=== PATIENT | male | born 1985 | race Two or more races ===

== ENCOUNTER 2019-04-05 03:19 | Emergency (ER) | payer OTHER ==
[~2019-04-05] VITALS: Ht 180.3 cm; Wt 104.3 kg
[2019-04-05 04:16] VITALS: BP 120/83
== END 2019-04-05 04:46 | disposition home or self-care (01) ==
LOC: ER 03:24
DX: H66.001 Acute suppurative otitis media without spontaneous rupture of ear drum, right ear (principal)

== ENCOUNTER 2024-10-04 18:47 | Inpatient (IN) | payer MEDICAID, OTHER ==
[~2024-10-04] VITALS: Ht 170.2 cm; Wt 97.4 kg
--- NOTE | 2024-10-04 19:16 | ED.PDOC ---
GI ASSESSMENT HPI Comments 39y M who presents to the ED for chief complaint of abdominal pain. Pt states he has been having epigastric abdominal pain for the past 1 week. Pt states the pain is constant, with no associated exacerbating or relieving factors. Pt has associated vomiting but otherwise denies any other symptoms. Pt states he has history of colon cancer with prior colon resection. Pt states cancer had come back but pt states he did not want chemo. Pt otherwise denies any other symptoms at this time. Chief Complaint: Abdominal Pain Time Seen by MD: 19:12 Reviewed Notes: Medications, Allergies Allergies: Coded Allergies: NO KNOWN ALLERGIES (Unverified , 04/05/19) Information Source: Patient, Spouse Mode of Arrival: Ambulatory Brought in by: spouse Past Medical History PAST MEDICAL HISTORY: Denies Past Medical History (Other): colon cancer Surgical History: Denies all surgeries Family History Family History: Reviewed,noncontributory to illness Social History Smoker: Non-Smoker Alcohol: Denies ETOH Use Drugs: Denies Drug Use Lives In: Home Constitutional: denies: chills, diaphoresis, fatigue, fever, malaise, sweats, weakness, others EENTM: denies: blurred vision, double vision, ear bleeding, ear discharge, ear drainage, ear pain, ear ringing, eye pain, eye redness, hearing loss, mouth pain, mouth swelling, nasal discharge, nose bleeding, nose congestion, nose pain, photophobia, tearing, throat pain, throat swelling, voice changes, others Respiratory: denies: cough, hemoptysis, orthopnea, SOB at rest, shortness of breath, SOB with excertion, stridor, wheezing, others Cardiovascular: denies: chest pain, dizzy spells, diaphoresis, Dyspnea on exer tion, edema, irregular heart beat, left arm pain, lightheadedness, palpitations, PND, syncope, others Gastrointestinal: reports: abdominal pain, vomiting; denies: abdomen distended, blood streaked bowels, constipated, diarrhea, dysphagia, difficulty swallowing, hematemesis, melena, nausea, poor appetite, poor fluid intake, rectal bleeding, rectal pain, others Genitourinary: denies: burning, dysuria, flank pain, frequency, hematuria, incontinence, penile discharge, penile sore, pain, testicle pain, testicle swelling, urgency, others Neurological: denies: dizziness, fainting, headache, left sided numbness, left sided weakness, numbness, paresthesia, pre-existing deficit, right sided numbness, right sided weakness, seizure, speech problems, tingling, tremors, weakness, others Musculoskeletal: denies: back pain, gout, joint pain, joint swelling, muscle pain, muscle stiffness, neck pain, others Integumetry: denies: bruises, change in color, change in hair/nails, dryness, laceration, lesions, lumps, rash, wounds, others Allergic/Immunocompromised: denies: Difficulty Healing, Frequent Infections, Hives, Itching, others Hematologic/Lymphatic: denies: anemia, blood clots, easy bleeding, easy bruising, swollen glands, others Endocrine: denies: excessive hunger, excessive sweating, excessive thirst, excessive urination, flushing, intolerance to cold, intolerance to heat, unexplained weight gain, unexplained weight loss, others Psychiatric: denies: anxiety, bipolar disorder, depression, hopeless, panic disorder, schizophrenia, sleepless, suicidal, others All Other Systems: Reviewed and Negative Physical Exam General Appearance: No Apparent Distress, Normal HEENT: Normal ENT Inspection, Pharynx Normal, TMs Normal Neck: Full Range of Motion, Non-Tender, Normal, Normal Inspection Respiratory: Chest Non-Tender, Lungs Clear, No Accessory Muscle Use, No Respiratory Distress, Normal Breath Sounds Cardiovascular: No Edema, No JVD, No Murmur, No Gallop, Normal Peripheral Pulses, Regular Rate/Rhythm Breast Exam: Deferred Gastrointestinal: Soft (epigastric) Genitalia: Deferred Pelvic: Deferred Rectal: Deferred Extremities: No calf tenderness, Normal capillary refill, Normal inspection, Normal range of motion, Non-tender, No pedal edema Musculoskeletal : Apperance: Normal Neurologic: Alert, cleaning attendant II-XII nml as Tested, No Motor Deficits, Normal Affect, Normal Mood, No Sensory Deficits Cerebellar Function: Normal Reflexes: Normal Skin: Dry, Normal Color, Warm Lymphatic: No Adenopathy Was a procedure done? Was a procedure done?: No GI differential Dx Differential Diagnosis: Bowel Obstruction, Cholecystitis, Constipation, Diverticular disease, Gastritis/PUD, Gastroenteritis, Hernia, Inflammatory BD, Ischemic Bowel, Pancreatitis, Dehydration, Electrolyte Imbalance, Food Poisoning, Hypovolemia, Impaction, Malnutrition, Ischemic Bowel, Mass Other Differential Diagnosis colon cancer mets X-Ray, Labs, Meds, VS Vital Signs Date Time Temp Pulse Resp B/P (MAP) Pulse Ox O2 Delivery O2 Flow Rate FiO2 10/04/24 19:00 98.3 80 16 122/74 (90) 97 98.3 Lab Test 10/04/24 19:19 Range/Units White Blood Count 10.3 4.4-10.8 10^3/uL Red Blood Count 5.45 4.5-5.90 10^6/uL Hemoglobin 16.6 13.5-17.5 g/dL Hematocrit 47.3 41.0-53.0 % Mean Corpuscular Volume 86.7 80.0-100.0 fL Mean Corpuscular Hemoglobin 30.5 28.0-32.0 pg Mean Corpuscular Hemoglobin Concent 35.1 32.0-36.0 g/dL Red Cell Distribution Width 13.8 11.8-14.3 % Platelet Count 206 140-450 10^3/uL Mean Platelet Volume 7.5 6.9-10.8 fL Neutrophils (%) (Auto) 89.1 H 37.0-80.0 % Lymphocytes (%) (Auto) 6.7 L 10.0-50.0 % Monocytes (%) (Auto) 4.1 0.0-12.0 % Eosinophils (%) (Auto) 0.0 0.0-7.0 % Basophils (%) (Auto) 0.1 0.0-2.0 % Neutrophils # (Auto) 9.2 H 1.6-8.6 10 ^3/uL Lymphocytes # (Auto) 0.7 0.4-5.4 10 ^3/uL Monocytes # (Auto) 0.4 0-1.3 10 ^3/uL Eosinophils # (Auto) 0 0-0.8 10 ^3/uL Basophils # (Auto) 0 0-0.2 10 ^3/uL Nucleated Red Blood Cells 0.1 % Sodium Level 136 136-145 mmol/L Potassium Level 3.9 3.5-5.1 mmol/L Chloride Level 98 98-107 mmol/L Carbon Dioxide Level 27 20-31 mmol/L Anion Gap 11 5-15 Blood Urea Nitrogen 10 9-23 mg/dL Creatinine 0.89 0.700-1.30 mg/dL Glomerular Filtration Rate Calc 113 >90 mL/min BUN/Creatinine Ratio 11.2 10.0-20.0 Serum Glucose 131 H 74-106 mg/dL Calcium Level 10.5 H 8.7-10.4 mg/dL Total Bilirubin 1.3 H 0.2-1.0 mg/dL Aspartate Amino Transferase (AST) 13 13-40 U/L Alanine Aminotransferase (ALT) 20 7-40 U/L Alkaline Phosphatase 110 46-116 U/L Total Protein 8.2 5.7-8.2 g/dL Albumin 5.5 H 3.2-4.8 g/dL Lipase 34 12-53 U/L [facility] [id number] [place] [address] Ph: [phone] DIAGNOSTIC IMAGING Diagnostic Imaging Report : [id number] Signed PATIENT: YAIMA ALEXISCCT: [id number] UNIT: [id number] : 1985 LOC: ER ROOM / BED: / AGE / SEX: 39 / M ADM STATUS: REG ER SERVICE 168 ORDERING PHYSICIAN: NEW LEMA MD PROCEDURE(s): ABPL - CT AB PEL WO CON-NO ORAL OR IV REASON: abdominal pain ORDER NUMBER(s): [id number], ACCESSION NUMBER(s): [id number] Exam: CT CT AB PEL WO CON-NO ORAL OR IV History: abdominal pain Comparison Study: None TECHNIQUE: Multidetector CT of the abdomen was performed from lung bases to pubic symphysis. Imaging was performed without IV contrast. Axial, coronal and sagittal multiplanar reformats were obtained from the axial data set by the technologist. Radiation Dose Information: CT Dose: CTDI volume is 14.51 mGy. Dose-length product is 838.05 mGy*cm FINDINGS: Evaluation of solid organs is limited due to lack of intravenous contrast use. Findings: Lung Bases: No acute or significant lung base finding. Normal heart size. No pleural or pericardial effusion. Liver: The liver is normal in size. No focal lesions. Gallbladder and Biliary Tree: Unremarkable Spleen: Unremarkable Pancreas: The pancreas is grossly normal in appearance. Adrenal Glands: Unremarkable Kidneys: Kidneys are grossly normal without calculi or hydronephrosis. Bladder: Grossly unremarkable for degree of distention. Bowel: The stomach is grossly normal in appearance. Small bowel and colon are normal in caliber and distribution. Postop changes right upper abdomen with dilated fluid-filled small bowel in the left upper abdomen. Findings suggest small bowel obstruction surgical site may be the nidus. The appendix is not visualized; however, no secondary findings of acute appendicitis identified. Ascites: Absent Lymphadenopathy: No mesenteric, retroperitoneal or periportal lymphadenopathy. Abdominal Wall and Mesentery: Unremarkable. Vasculature: The visualized abdominal aorta is normal in size and caliber. Evaluation of abdominal and pelvic vessels is limited due to lack of intravenous contrast. Pelvic Organs: Unremarkable Musculoskeletal: No aggressive focal bony lesions, acute fractures or dislocation. Soft tissues: Unremarkable IMPRESSION: 1. Findings worrisome for small bowel obstruction. Radiation optimization: All CT scans at this facility use at least one of these dose optimization techniques: automated exposure control mA and/or kV adjustment per patient size (includes targeted exams where dose is matched to clinical indication) or iterative reconstruction. ATED BY: REDDY ULRICH Jr., DO DICTATED DATE/TIME: 10/04/241929 SIGNED BY: REDDY ULRICH Jr., SIGNED DATE/TIME: 10/04/241929 CC: Time of 1ST Reevaluation: 19:45 Reevaluation 1ST: Unchanged Patient Education/Counseling: Diagnosis, Treatment, Prognosis, Need For Follow Up Family Education/Counseling: Diagnosis, Treatment, Prognosis, Need For Follow Up Additional Information Previous visits reviewed: The following tests were ordered, and results were reviewed by me: cbc, cmp, ct abd pelvis non-con, lipase Additional Information was gathered from interviewing the following independent historians: none I reviewed and agreed with the following test results read by other providers: radiologist I discussed treatment and results with medical personnel and: patient Comprehensive systems review obtained and negative except for what is stated in the HPI. pt does not have an acute abdomen. however, ct is suspicious for sbo, which likely resulted from adhesions from his prior surgery. pt will be admitted for hydration, bowel rest Departure 1 Departure Time of Disposition: 19:49 Impression: Primary Impression: SBO (small bowel obstruction) Disposition: ADMITTED INPATIENT Admit to: Med Surg Condition: Serious Discharged With: Self, Spouse Critical Care Note Critical Care Time?: Yes (55 min-critical care time only) Critical care comment: Due to concerns for patients condition deteriorating, the care required my highest level of attention and readiness to intervene. I assessed the patient, reviewed the medical records, ordered the appropriate tests and treatments, then reassessed for results and responsiveness. I communicated with medical personnel and consultants and formulated a plan of care. Total critical care time excludes any procedures Stability Stability form required: No Heart Score Heart Score: Heart Score Response (Comments) Value History N/A 0 EKG N/A 0 Age N/A 0 Risk Factors N/A 0 Troponin N/A 0 Total 0 I personally scribed for NEW LEMA MD ([email or web address]) on 10/04/24 at 19:16. Electronically submitted by Valerie Mohr ([employer]). I personally scribed for NEW LEMA MD ([email or web address]) on 10/04/24 at 19:36. Electronically submitted by Valerie Mohr ([employer]). NEW LEMA MD October 04, 2024 19:16
[2024-10-04 19:28] LABS: Basophils # (auto) 0 10 ^3/uL (0-0.2); Basophils % (auto) 0.1 % (0.0-2.0); Eosinophils # (auto) 0 10 ^3/uL (0-0.8); Hematocrit 47.3 % (41.0-53.0); Hemoglobin 16.6 g/dL (13.5-17.5); Lymphocytes # (auto) 0.7 10 ^3/uL (0.4-5.4); Lymphocytes % (auto) 6.7 % (10.0-50.0); Mean Corpuscular Hemoglobin 30.5 pg (28.0-32.0); Mean Corpuscular Hgb Conc. 35.1 g/dL (32.0-36.0); Mean Corpuscular Volume 86.7 fL (80.0-100.0); Monocytes # (auto) 0.4 10 ^3/uL (0-1.3); Monocytes % (auto) 4.1 % (0.0-12.0); Neutrophils # (auto) 9.2 10 ^3/uL (1.6-8.6); Neutrophils % (auto) 89.1 % (37.0-80.0); Nucleated Red Blood Cells % 0.1 %; Platelet Count (auto) 206 10^3/uL (140-450); Red Blood Cells 5.45 10^6/uL (4.5-5.90); Red Cell Distribution Width 13.8 % (11.8-14.3); White Blood Cell 10.3 10^3/uL (4.4-10.8)
--- NOTE | 2024-10-04 19:33 | DVH ---
Exam: CT CT AB PEL WO CON-NO ORAL OR IV History: abdominal pain Comparison Study: None TECHNIQUE: Multidetector CT of the abdomen was performed from lung bases to pubic symphysis. Imaging was performed without IV contrast. Axial, coronal and sagittal multiplanar reformats were obtained fr om the axial data set by the technologist. Radiation Dose Information: CT Dose: CTDI volume is 14.51 mGy. Dose-length product is 838.05 mGy*cm FINDINGS: Evaluation of solid organs is limited due to lack of intravenous contrast use. Findings: Lung Bases: No acute or significant lung base finding. Normal heart size. No pleural or pericardial effusion. Liver: The liver is normal in size. No focal lesions. Gallbladder and Biliary Tree: Unremarkable Spleen: Unremarkable Pancreas: The pancreas is grossly normal in appearance. Adrenal Glands: Unremarkable Kidneys: Kidneys are grossly normal without calculi or hydronephrosis. Bladder: Grossly unremarkable for degree of distention. Bowel: The stomach is grossly normal in appearance. Small bowel and colon are normal in caliber and d istribution. Postop changes right upper abdomen with dilated fluid-filled small bowel in the left upp er abdomen. Findings suggest small bowel obstruction surgical site may be the nidus. The appendix is not visualized; however, no secondary findings of acute appendicitis identified. Ascites: Absent Lymphadenopathy: No mesenteric, retroperitoneal or periportal lymphadenopathy. Abdominal Wall and Mesentery: Unremarkable. Vasculature: The visualized abdominal aorta is normal in size and caliber. Evaluation of abdominal a nd pelvic vessels is limited due to lack of intravenous contrast. Pelvic Organs: Unremarkable Musculoskeletal: No aggressive focal bony lesions, acute fractures or dislocation. Soft tissues: Unremarkable IMPRESSION: 1. Findings worrisome for small bowel obstruction. Radiation optimization: All CT scans at this facility use at least one of these dose optimization maude hniques: automated exposure control mA and/or kV adjustment per patient size (includes targeted exam s where dose is matched to clinical indication) or iterative reconstruction.
[2024-10-04 19:46] LABS: Alanine Aminotransferase 20 U/L (7-40); Alkaline Phosphatase 110 U/L (46-116); Anion Gap 11 (5-15); BUN/Creatinine Ratio 11.2 (10.0-20.0); Blood Urea Nitrogen 10 mg/dL (9-23); Carbon Dioxide 27 mmol/L (20-31); Lipase 34 U/L (12-53); Potassium 3.9 mmol/L (3.5-5.1); Sodium 136 mmol/L (136-145); Total Protein 8.2 g/dL (5.7-8.2)
[2024-10-04 19:47] LABS: Albumin 5.5 g/dL (3.2-4.8); Aspartate Aminotransferase 13 U/L (13-40); Bilirubin, Total 1.3 mg/dL (0.2-1.0); Calcium 10.5 mg/dL (8.7-10.4); Chloride 98 mmol/L (98-107); Glucose 131 mg/dL (74-106)
[2024-10-04] MEDS: MORPHINE SULFATE INJ 2 MG/ml SYRG IV ONE (20:15)
[2024-10-04] MEDS: SODIUM CHLORIDE 0.9% 1,000 ML IV ONE (20:15)
[2024-10-04] MEDS: ONDANSETRON HCL 4 MG/2 ML VIAL IV ONE (20:15)
[2024-10-04] MEDS ORDERED: ONDANSETRON HCL 4 MG/2 ML VIAL IV PRN (20:30)
[2024-10-04] MEDS ORDERED: ACETAMINOPHEN 325 MG TAB PO PRN (20:30)
[2024-10-04] MEDS ORDERED: DOCUSATE SOD 100 MG CAP PO PRN (20:30)
[2024-10-04] MEDS: SODIUM CHLORIDE 0.9% 1,000 ML IV SCH (20:30)
[2024-10-04] MEDS ORDERED: MORPHINE SULFATE INJ 2 MG/ml SYRG IV PRN ×2 (20:30→23:00)
[2024-10-04] MEDS ORDERED: HYDROcodone-ACET 5/325MG TAB PO PRN (20:30)
[2024-10-04] MEDS: MORPHINE SULFATE 4 MG/ML SYR/VIAL ONE (20:55)
[2024-10-04 21:03] VITALS: PULSE 73; RESP 14; O2SAT 94
--- NOTE | 2024-10-04 22:00 | DVH ---
CHEST RADIOGRAPH Indication: NGT placement Technique: Single frontal view of the chest was obtained COMPARISON: None FINDINGS / IMPRESSION: Lines and Tubes: NG tube noted extending below the diaphragm with its tip projecting over gastric fun dus. Multiple dilated loops of small bowel noted in the upper abdomen. Right IJ port-a-cath noted wit h its tip projecting over cavoatrial junction. Lungs: Lung volumes are low with minimal bibasilar subsegmental atelectasis. Otherwise unremarkable. Pleura: No effusion. No pneumothorax. Cardiomediastinal contours: Unremarkable
--- NOTE | 2024-10-04 22:48 | DVHHP2 ---
History of Present Illness Reason for Visit: SBO (small bowel obstruction) History of Present Illness The patient is a 39-year-old male with past medical history of colon cancer who presented to [facility] ED with complaint of abdominal pain. Patient reports symptoms progressively get worse with epigastric abdominal pain for the past 1 week, rating 7/10 numeric scale, associated with vomiting, getting worse today that prompted this visit. Patient was seen and evaluated in the ED, laboratory data shows WBC 10.3, platelets 206, sodium 136, potassium 3.9, BUN 10, creatinine 0.89, glucose 131, calcium 10.5, total bilirubin 1.3, albumin 5.5, blood pressure 122/74, heart rate 80, temperature 98.3 F, O2 saturation 97% on oxygen. Abdomen/pelvis CT revealing small bowel obstruction. Please see medication orders section in the computer. On my assessment, patient denied chest pain, no headache, no dizziness, no shortness a breath, no diaphoresis, no diarrhea, no nausea, no vomiting, no fever, no chills. Patient was admitted for further evaluation and medical management. Past Medical History Colon cancer, chemotherapy for 9 months Past Surgical History Colon resection Family History Reviewed, noncontributory to the management of this case. Past Social History The patient lives at home, denies smoking, alcohol or illicit drugs abuse. Review of Systems Constitutional: Yes: Weakness; No: Fever, Chills, Sweats, Malaise, Other Eyes: No: Pain, Vision change, Conjunctivae inflammation, Eyelid inflammation, Other, Redness ENT: No: Ear pain, Ear discharge, Nose pain, Nose discharge, Nose congestion, Mouth pain, Mouth swelling, Throat pain, Throat swelling, Other Respiratory: No: Cough, Dry, Shortness of breath, SOB with excertion, Wheezing, Hemoptysis, Pleuritic Pain, Sputum, Wheezing, Other Cardiovascular: No: Chest Pain, Palpitations, Orthopnea, Paroxysmal Noc. Dysp allen, Edema, Lt Headedness, Other Gastrointestinal: Vomiting, Abdominal Pain; No: Nausea, Diarrhea, Constipation, Melena, Hematochezia, Other Genitourinary: No Dysuria, No Frequency, No Incontinence, No Hematuria, No Retention, No Other Musculoskeletal: No: other, neck pain, shoulder pain, arm pain, back pain, hand pain, leg pain, foot pain Skin: No: Rash, Lesions, Jaundice, Bruising, Other Neurological: No: Weakness, Numbness, Incoordination, Change in speech, Confusion, Seizures, Other Allergies: Coded Allergies: NO KNOWN ALLERGIES (Unverified , 04/05/19) Medications Current Medications Medications Dose Ordered Sig/Stan Route Start Time Stop Time Status Last Admin Dose Admin Sodium Chloride 1,000 ml @ 60 mls/hr [id number] IV 10/04/24 20:30 10/04/24 20:30 60 MLS/HR Acetaminophen/ Hydrocodone Bitart 1 tab Q4HP PRN PO 10/04/24 20:30 Ondansetron HCl 4 mg Q4HP PRN IV 10/04/24 20:30 Docusate Sodium 100 mg BIDPRN PRN PO 10/04/24 20:30 Acetaminophen 650 mg Q6HP PRN PO 10/04/24 20:30 Morphine Sulfate 2 mg Q4HPRN PRN IV 10/04/24 20:30 Exam Vital Signs Vital Signs Date Time Temp Pulse Resp B/P (MAP) Pulse Ox O2 Delivery O2 Flow Rate FiO2 10/04/24 22:11 98.4 73 14 120/82 (95) 94 98.4 10/04/24 21:03 Room Air* 0 21 General Appearance: Alert, Oriented X3, Cooperative, No acute distress HEENT: Atraumatic, PERRLA, EOMI, Mucous membr. moist/pink Respiratory: Clear to auscultation, Normal air movement Cardiovascular: Regular rate, Normal S1, Normal S2, No murmurs Abdominal: Normal bowel sounds, Soft, No hepatospenomegaly, No masses, Other (Reports tenderness) Extremities: No clubbing, No cyanosis, No edema, Normal pulses, No tenderness/swelling Skin: No rashes, No breakdown, No significant lesion Neuro: Normal speech, Normal tone, Sensation intact, Cranial nerves 3-12 NL, Reflexes 2+, Other (Weakness) Psych/Mental Status: Mental status NL, Mood NL Labs/Xrays Labs Test 10/04/24 19:19 Range/Units White Blood Count 10.3 4.4-10.8 10^3/uL Red Blood Count 5.45 4.5-5.90 10^6/uL Hemoglobin 16.6 13.5-17.5 g/dL Hematocrit 47.3 41.0-53.0 % Mean Corpuscular Volume 86.7 80.0-100.0 fL Mean Corpuscular Hemoglobin 30.5 28.0-32.0 pg Mean Corpuscular Hemoglobin Concent 35.1 32.0-36.0 g/dL Red Cell Distribution Width 13.8 11.8-14.3 % Platelet Count 206 140-450 10^3/uL Mean Platelet Volume 7.5 6.9-10.8 fL Neutrophils (%) (Auto) 89.1 H 37.0-80.0 % Lymphocytes (%) (Auto) 6.7 L 10.0-50.0 % Monocytes (%) (Auto) 4.1 0.0-12.0 % Eosinophils (%) (Auto) 0.0 0.0-7.0 % Basophils (%) (Auto) 0.1 0.0-2.0 % Neutrophils # (Auto) 9.2 H 1.6-8.6 10 ^3/uL Lymphocytes # (Auto) 0.7 0.4-5.4 10 ^3/uL Monocytes # (Auto) 0.4 0-1.3 10 ^3/uL Eosinophils # (Auto) 0 0-0.8 10 ^3/uL Basophils # (Auto) 0 0-0.2 10 ^3/uL Nucleated Red Blood Cells 0.1 % Sodium Level 136 136-145 mmol/L Potassium Level 3.9 3.5-5.1 mmol/L Chloride Level 98 98-107 mmol/L Carbon Dioxide Level 27 20-31 mmol/L Anion Gap 11 5-15 Blood Urea Nitrogen 10 9-23 mg/dL Creatinine 0.89 0.700-1.30 mg/dL Glomerular Filtration Rate Calc 113 >90 mL/min BUN/Creatinine Ratio 11.2 10.0-20.0 Serum Glucose 131 H 74-106 mg/dL Calcium Level 10.5 H 8.7-10.4 mg/dL Total Bilirubin 1.3 H 0.2-1.0 mg/dL Aspartate Amino Transferase (AST) 13 13-40 U/L Alanine Aminotransferase (ALT) 20 7-40 U/L Alkaline Phosphatase 110 46-116 U/L Total Protein 8.2 5.7-8.2 g/dL Albumin 5.5 H 3.2-4.8 g/dL Lipase 34 12-53 U/L PATIENT: YAIMA ALEXISSUSACCT: [id number] UNIT: [id number] : 1985 LOC: ER ROOM / BED: / AGE / SEX: 39 / M ADM STATUS: REG ER SERVICE 1854 ORDERING PHYSICIAN: NEW LEMA MD PROCEDURE(s): ABPL - CT AB PEL WO CON-NO ORAL OR IV REASON: abdominal pain ORDER NUMBER(s): [id number], ACCESSION NUMBER(s): [id number] Exam: CT CT AB PEL WO CON-NO ORAL OR IV History: abdominal pain Comparison Study: None TECHNIQUE: Multidetector CT of the abdomen was performed from lung bases to pubic symphysis. Imaging was performed without IV contrast. Axial, coronal and sagittal multiplanar reformats were obtained from the axial data set by the technologist. Radiation Dose Information: CT Dose: CTDI volume is 14.51 mGy. Dose-length product is 838.05 mGy*cm FINDINGS: Evaluation of solid organs is limited due to lack of intravenous contrast use. Findings: Lung Bases: No acute or significant lung base finding. Normal heart size. No pleural or pericardial effusion. Liver: The liver is normal in size. No focal lesions. Gallbladder and Biliary Tree: Unremarkable Spleen: Unremarkable Pancreas: The pancreas is grossly normal in appearance. Adrenal Glands: Unremarkable Kidneys: Kidneys are grossly normal without calculi or hydronephrosis. Bladder: Grossly unremarkable for degree of distention. Bowel: The stomach is grossly normal in appearance. Small bowel and colon are normal in caliber and distribution. Postop changes right upper abdomen with dilated fluid-filled small bowel in the left upper abdomen. Findings suggest small bowel obstruction surgical site may be the nidus. The appendix is not visualized; however, no secondary findings of acute appendicitis identified. Ascites: Absent Lymphadenopathy: No mesenteric, retroperitoneal or periportal lymphadenopathy. Abdominal Wall and Mesentery: Unremarkable. Vasculature: The visualized abdominal aorta is normal in size and caliber. Evaluation of abdominal and pelvic vessels is limited due to lack of intravenous contrast. Pelvic Organs: Unremarkable Musculoskeletal: No aggressive focal bony lesions, acute fractures or dislocati on. Soft tissues: Unremarkable IMPRESSION: 1. Findings worrisome for small bowel obstruction. ORDERING PHYSICIAN: NEW LEMA MD PROCEDURE(s): CXR1 - CHEST XRAY 1 VIEW REASON: NGT placement ORDER NUMBER(s): [id number], ACCESSION NUMBER(s): [id number] CHEST RADIOGRAPH Indication: NGT placement Technique: Single frontal view of the chest was obtained COMPARISON: None FINDINGS / IMPRESSION: Lines and Tubes: NG tube noted extending below the diaphragm with its tip projecting over gastric fundus. Multiple dilated loops of small bowel noted in the upper abdomen. Right IJ port-a-cath noted with its tip projecting over cavoatrial junction. Lungs: Lung volumes are low with minimal bibasilar subsegmental atelectasis. Otherwise unremarkable. Pleura: No effusion. No pneumothorax. Cardiomediastinal contours: Unremarkable Assessment/Plan Assessment/Plan Acute abdominal pain SBO (small bowel obstruction) Plan 1. Admit to telemetry unit 2. Breathing treatment 3. Pain control management 4. Management of fluids and electrolytes 5. Consultation for surgery 6. Diagnostic tests abdomen/pelvis CT 7. DVT prophylaxis-on SCDs 8. Repeat labs CBC, CMP in a.m. 9. Continue with current medical management 10. Treatment plan discussed with patient and RN. Patient verbalized understanding. Plan discussed with: Patient, Spouse ( at bedside), Other (RN) My Orders Orders - CARLOS ALBERTO BLAKE DNP Procedure Category Date Status Time * Surgical Consult CONS 10/04/24 Transmitted Allergies STEFAN 10/04/24 In Process 20:30 Code Status CODE 10/04/24 Transmitted 20:30 Sodium Chloride 0.9% PHA 10/04/24 In Process 20:30 Oxygen Per Hour RT 10/04/24 Transmitted 20:30 Hydrocodone-Acet PHA 10/04/24 In Process 5/325mg Tab ([place] 20:30 Ondansetron Hcl PHA 10/04/24 In Process (Zofran) 20:30 Docusate Sodium PHA 10/04/24 In Process Capsule (Colace 20:30 Complete Blood Count LAB 10/05/24 Verified 04:00 Comprehensive LAB 10/05/24 Verified Metabolic Panel 04:00 Npo (Nothing By DIET 10/05/24 Transmitted Mouth) Diet Breakfast Condition: Serious STEFAN 10/04/24 In Process 20:30 Acetaminophen Tablet PHA 10/04/24 In Process (Tylenol Tablet) 20:30 Bedrest With Bathroom STEFAN 10/04/24 In Process Privileg 20:30 Morphine Sulfate PHA 10/04/24 In Process Injection 20:30 Sequential STEFAN 10/04/24 In Process Compression Device Ngt/Ogt ED NURSING 10/04/24 Transmitted Admit ADMIT 10/04/24 Verified 22:47 Nitroglycerin [facility] 10/04/24 Verified Sublingual (Ntrostat 23:00 Morphine Sulfate PHA 10/04/24 Verified Injection 23:00 Stat Ekg For Chest [facility] 10/04/24 Verified Pain 22:47 Notify Md Of Changes [facility] 10/04/24 Verified From Base 22:47 Business Line Controller For [facility] 10/04/24 Verified 24 Hours 22:47 Emergency Dysrhythmia [facility] 10/04/24 Verified Protocol 22:47 Rhythm Strips Once [facility] 10/04/24 Verified Every Shift 22:47 Oxygen By Nasal RT 10/04/24 Verified Cannula 22:47 Problem List: (1) Acute abdominal pain (2) SBO (small bowel obstruction) Date of Service: October 04, 2024 Billing Provider: CARLOS ALBERTO BLAKE DNP Common Visit Codes: [id number] INP/OBS CARE (HIGH) CARLOS ALBERTO BLAKE DNP October 04, 2024 22:48
[2024-10-04] MEDS ORDERED: NITROGLYCERIN 0.4 MG SL TAB SL PRN (23:00)
[2024-10-05] VITALS (7 sets, daily range): BP systolic 11–122; BP diastolic 72–80; PULSE 61–71; RESP 17–18; TEMP 97.2–98.8; O2SAT 95–99
[2024-10-05 06:13] LABS: Basophils # (auto) 0 10 ^3/uL (0-0.2); Basophils % (auto) 0.1 % (0.0-2.0); Eosinophils # (auto) 0 10 ^3/uL (0-0.8); Hematocrit 44.5 % (41.0-53.0); Hemoglobin 15.5 g/dL (13.5-17.5); Lymphocytes # (auto) 0.9 10 ^3/uL (0.4-5.4); Lymphocytes % (auto) 10.6 % (10.0-50.0); Mean Corpuscular Hemoglobin 30.3 pg (28.0-32.0); Mean Corpuscular Hgb Conc. 34.8 g/dL (32.0-36.0); Mean Corpuscular Volume 87.1 fL (80.0-100.0); Monocytes # (auto) 0.9 10 ^3/uL (0-1.3); Monocytes % (auto) 10.5 % (0.0-12.0); Neutrophils # (auto) 6.5 10 ^3/uL (1.6-8.6); Neutrophils % (auto) 78.8 % (37.0-80.0); Nucleated Red Blood Cells % 0.1 %; Platelet Count (auto) 182 10^3/uL (140-450); Red Blood Cells 5.11 10^6/uL (4.5-5.90); Red Cell Distribution Width 13.6 % (11.8-14.3); White Blood Cell 8.2 10^3/uL (4.4-10.8)
[2024-10-05 06:31] LABS: Alanine Aminotransferase 15 U/L (7-40); Alkaline Phosphatase 95 U/L (46-116); Anion Gap 9 (5-15); BUN/Creatinine Ratio 11.1 (10.0-20.0); Calcium 10.2 mg/dL (8.7-10.4); Carbon Dioxide 25 mmol/L (20-31); Chloride 102 mmol/L (98-107); Potassium 3.6 mmol/L (3.5-5.1); Sodium 136 mmol/L (136-145); Total Protein 7.1 g/dL (5.7-8.2)
[2024-10-05 06:32] LABS: Albumin 4.7 g/dL (3.2-4.8); Aspartate Aminotransferase 14 U/L (13-40); Bilirubin, Total 1.3 mg/dL (0.2-1.0); Blood Urea Nitrogen 9 mg/dL (9-23); Glucose 113 mg/dL (74-106)
--- NOTE | 2024-10-05 14:57 | DVHINCON2 ---
Date of service: Oct 05, 2024 History of Present Illness 39-year-old male with a history of colon cancer status post resection last year and recently finished chemotherapy and now complaining of three day history of epigastric abdominal pain associated with nausea and vomiting. Today he feels significant improvement in his abdominal pain and also reports small amount of flatus. Past Medical History Colon cancer Past Surgical History Open colectomy Family History Noncontributory Social History No alcohol, tobacco, IV drug use Allergies: Coded Allergies: NO KNOWN ALLERGIES (Unverified , 04/05/19) Home Meds No Active Prescriptions or Reported Meds Current Medications Current Medications Medications (Trade) Dose Ordered Sig/Stan Route PRN Reason Start Time Stop Time Status Last Admin Sodium Chloride 1,000 ml @ 60 mls/hr [id number] IV 10/04/24 20:30 10/04/24 20:30 Acetaminophen/ Hydrocodone Bitart ([place] 5/325MG Tab) 1 tab Q4HP PRN PO MODERATE PAIN (4-6 PAIN SCALE) 10/04/24 20:30 Ondansetron HCl (Zofran) 4 mg Q4HP PRN IV NAUSEA / VOMITING 10/04/24 20:30 Docusate Sodium (Colace Capsule) 100 mg BIDPRN PRN PO FOR CONSTIPATION 10/04/24 20:30 Acetaminophen (Tylenol Tablet) 650 mg Q6HP PRN PO PAIN SCALE 1-3 OR TEMP>100.4 10/04/24 20:30 Morphine Sulfate 2 mg Q4HPRN PRN IV SEVERE PAIN (7-10 PAIN SCALE) 10/04/24 20:30 Nitroglycerin (Ntrostat Sublingual) 0.4 mg Q5MINP PRN SL FOR CHEST PAIN 10/04/24 23:00 Morphine Sulfate 2 mg Q30M PRN IV FOR CHEST PAIN 10/04/24 23:00 Vital Signs Vital Signs Date Time Temp Pulse Resp B/P (MAP) Pulse Ox O2 Delivery O2 Flow Rate FiO2 10/05/24 13:00 98.2 61 18 11/72 (52) 95 98.2 10/05/24 08:00 Room Air* 0 21 Physical Exam GEN: Age-appropriate male in no acute distress. Alert. HEENT: Normocephalic atraumatic. Moist mucous membranes. Anicteric sclerae. There is an NG tube to low intermittent suction. CV: RRR Respiratory: CTAB ABD: Large midline incisional scar with minimal epigastric tenderness to palpa tion without guarding or rebound. Minimal distention. CT of the abdomen and pelvis: There is some postop changes in the right upper quadrant with dilated fluid-filled small bowel in the left upper abdomen findings suggestive of small-bowel obstruction. Labs/Diagnostic Data Labs Test 10/05/24 05:29 10/04/24 19:19 Range/Units White Blood Count 8.2 4.4-10.8 10^3/uL Red Blood Count 5.11 4.5-5.90 10^6/uL Hemoglobin 15.5 13.5-17.5 g/dL Hematocrit 44.5 41.0-53.0 % Mean Corpuscular Volume 87.1 80.0-100.0 fL Mean Corpuscular Hemoglobin 30.3 28.0-32.0 pg Mean Corpuscular Hemoglobin Concent 34.8 32.0-36.0 g/dL Red Cell Distribution Width 13.6 11.8-14.3 % Platelet Count 182 140-450 10^3/uL Mean Platelet Volume 8.0 6.9-10.8 fL Neutrophils (%) (Auto) 78.8 37.0-80.0 % Lymphocytes (%) (Auto) 10.6 10.0-50.0 % Monocytes (%) (Auto) 10.5 0.0-12.0 % Eosinophils (%) (Auto) 0.0 0.0-7.0 % Basophils (%) (Auto) 0.1 0.0-2.0 % Neutrophils # (Auto) 6.5 1.6-8.6 10 ^3/uL Lymphocytes # (Auto) 0.9 0.4-5.4 10 ^3/uL Monocytes # (Auto) 0.9 0-1.3 10 ^3/uL Eosinophils # (Auto) 0 0-0.8 10 ^3/uL Basophils # (Auto) 0 0-0.2 10 ^3/uL Nucleated Red Blood Cells 0.1 % Sodium Level 136 136-145 mmol/L Potassium Level 3.6 3.5-5.1 mmol/L Chloride Level 102 98-107 mmol/L Carbon Dioxide Level 25 20-31 mmol/L Anion Gap 9 5-15 Blood Urea Nitrogen 9 9-23 mg/dL Creatinine 0.81 0.700-1.30 mg/dL Glomerular Filtration Rate Calc 116 >90 mL/min BUN/Creatinine Ratio 11.1 10.0-20.0 Serum Glucose 113 H 74-106 mg/dL Calcium Level 10.2 8.7-10.4 mg/dL Total Bilirubin 1.3 H 0.2-1.0 mg/dL Aspartate Amino Transferase (AST) 14 13-40 U/L Alanine Aminotransferase (ALT) 15 7-40 U/L Alkaline Phosphatase 95 46-116 U/L Total Protein 7.1 5.7-8.2 g/dL Albumin 4.7 3.2-4.8 g/dL Lipase 34 12-53 U/L Assessment 1. Small-bowel obstruction Plan/Recommendation 1. Continue with NG tube decompression 2. Small-bowel follow-through with Gastrografin tomorrow Plan discussed with: Patient, Spouse VICTORIANO IGLESIAS MD Oct 05, 2024 14:57
--- NOTE | 2024-10-05 17:57 | DVHPN2 ---
Subjective In bed resting Reviewed: H&P, Labs Changes from previous H/P or p: No Changes Eyes: No Pain, No Vision change, No Conjunctivae inflammation, No Eyelid inflammation, No Other, No Redness ENT: No Ear pain, No Ear discharge, No Nose pain, No Nose discharge, No Nose congestion, No Mouth pain, No Mouth swelling, No Throat pain, No Throat swelling, No Other Cardiovascular: No Chest Pain, No Palpitations, No Orthopnea, No Paroxysmal Noc. Dyspnea, No Edema, No Lt Headedness, No Other Respiratory: No Cough, No Dry, No Shortness of breath, No SOB with excertion, No Wheezing, No Hemoptysis, No Pleuritic Pain, No Sputum, No Other Gastrointestinal: No Nausea; Vomiting, Abdominal Pain; No Diarrhea, No Constipation, No Melena, No Hematochezia, No Other Genitourinary: No Dysuria, No Frequency, No Incontinence, No Hematuria, No Retention, No Other Musculoskeletal: No other, No neck pain, No shoulder pain, No arm pain, No back pain, No hand pain, No leg pain, No foot pain Skin: No Rash, No Lesions, No Jaundice, No Bruising, No Other Objective Vitals Vital Signs Date Time Temp Pulse Resp B/P (MAP) Pulse Ox O2 Delivery O2 Flow Rate FiO2 10/05/24 16:43 98.8 64 18 111/73 (86) 96 98.8 10/05/24 08:00 Room Air* 0 21 Intake/Output Intake and Output 10/05/24 07:00 Intake Total 1180 ml Balance 1180 ml Intake Oral 0 ml IV Total 1180 ml General Appearance: Alert, Oriented X3 Lungs: Clear to auscultation Cardiovascular: Regular rate, Normal S1, Normal S2 Abdomen: Other (distended) Medications Current Medications Medications Dose Ordered Sig/Stan Route Start Time Stop Time Status Last Admin Dose Admin Acetaminophen/ Hydrocodone Bitart 1 tab Q4HP PRN PO 10/04/24 20:30 Ondansetron HCl 4 mg Q4HP PRN IV 10/04/24 20:30 Docusate Sodium 100 mg BIDPRN PRN PO 10/04/24 20:30 Acetaminophen 650 mg Q6HP PRN PO 10/04/24 20:30 Morphine Sulfate 2 mg Q4HPRN PRN IV 10/04/24 20:30 Nitroglycerin 0.4 mg Q5MINP PRN SL 10/04/24 23:00 Morphine Sulfate 2 mg Q30M PRN IV 10/04/24 23:00 Potassium Chloride/Dextrose/ Sod Cl 1,000 ml @ 100 mls/hr Q10H IV 10/05/24 15:00 Laboratory Results Laboratory Tests 10/05/24 05:29 Chemistry Test 10/04/24 19:19 10/05/24 05:29 Albumin 5.5 g/dL (3.2-4.8) H 4.7 g/dL (3.2-4.8) Calcium Level 10.5 mg/dL (8.7-10.4) H 10.2 mg/dL (8.7-10.4) Total Protein 8.2 g/dL (5.7-8.2) 7.1 g/dL (5.7-8.2) Lipid panel Test 10/04/24 19:19 Lipase 34 U/L (12-53) LFT Test 10/04/24 19:19 10/05/24 05:29 Alanine Aminotransferase (ALT) 20 U/L (7-40) 15 U/L (7-40) Alkaline Phosphatase 110 U/L (46-116) 95 U/L (46-116) Aspartate Amino Transferase (AST) 13 U/L (13-40) 14 U/L (13-40) Total Bilirubin 1.3 mg/dL (0.2-1.0) H 1.3 mg/dL (0.2-1.0) H Assessment/Plan Assessment/Plan Acute abdominal pain SBO (small bowel obstruction)\ Plan Continue NGT IVF Surgery folllowing daily BMP Plan discussed with: Patient Date of Service: Oct 05, 2024 Billing Provider: ROCAEL SILVA MD Common Visit Codes: [id number] INP/OBS CARE(HIGH) ROCAEL SILVA MD Oct 05, 2024 17:57
[2024-10-05] MEDS: D5W/SOD CHL 0.45%/KCL 20MEQ 1,000 ML IV SCH (18:08)
[2024-10-06] VITALS (8 sets, daily range): BP systolic 102–137; BP diastolic 68–85; PULSE 60–80; RESP 17–19; TEMP 97.2–98.6; O2SAT 94–99
[2024-10-06 07:42] LABS: Basophils # (auto) 0 10 ^3/uL (0-0.2); Basophils % (auto) 0.1 % (0.0-2.0); Eosinophils # (auto) 0 10 ^3/uL (0-0.8); Eosinophils % (auto) 0.2 % (0.0-7.0); Hematocrit 44.2 % (41.0-53.0); Hemoglobin 15.2 g/dL (13.5-17.5); Lymphocytes # (auto) 1.2 10 ^3/uL (0.4-5.4); Lymphocytes % (auto) 21.8 % (10.0-50.0); Mean Corpuscular Hemoglobin 30.5 pg (28.0-32.0); Mean Corpuscular Hgb Conc. 34.4 g/dL (32.0-36.0); Mean Corpuscular Volume 88.7 fL (80.0-100.0); Monocytes # (auto) 0.7 10 ^3/uL (0-1.3); Monocytes % (auto) 12.6 % (0.0-12.0); Neutrophils # (auto) 3.7 10 ^3/uL (1.6-8.6); Neutrophils % (auto) 65.3 % (37.0-80.0); Nucleated Red Blood Cells % 0.1 %; Platelet Count (auto) 176 10^3/uL (140-450); Red Blood Cells 4.99 10^6/uL (4.5-5.90); Red Cell Distribution Width 13.7 % (11.8-14.3); White Blood Cell 5.7 10^3/uL (4.4-10.8)
[2024-10-06 07:52] LABS: INR 1.06 (0.9-1.15); Partial Thromboplastin Time 27.9 SEC (24.5-34.5); Prothrombin Time 11.2 sec (9.3-11.8)
[2024-10-06 07:53] LABS: Calcium 9.9 mg/dL (8.7-10.4); Chloride 105 mmol/L (98-107); Sodium 139 mmol/L (136-145)
[2024-10-06 07:54] LABS: Anion Gap 7 (5-15); Carbon Dioxide 27 mmol/L (20-31)
[2024-10-06 07:59] LABS: BUN/Creatinine Ratio 10.8 (10.0-20.0); Blood Urea Nitrogen 9 mg/dL (9-23); Glucose 108 mg/dL (74-106)
--- NOTE | 2024-10-06 09:40 | DVHPN2 ---
Progress Note - Dictate Date Seen: Oct 06, 2024 Medical Necessity Reason Pt with a Central, PICC or Fol: No Subjective E: no major events o/n. feels better. reports BM x 2 vital signs Vital Sign Date Time Temp Pulse Resp B/P (MAP) Pulse Ox O2 Delivery O2 Flow Rate FiO2 10/06/24 09:14 98.6 67 18 110/71 (84) 94 98.6 10/06/24 08:00 Room Air* 0 21 Total Intake and Output 10/05/24 10/05/24 10/06/24 15:00 23:00 07:00 Intake Total 0 ml 0 ml Output Total 100 ml Balance -100 ml 0 ml medications Current Medications Medications Dose Ordered Sig/Stan Route Start Time Stop Time Status Last Admin Dose Admin Acetaminophen/ Hydrocodone Bitart 1 tab Q4HP PRN PO 10/04/24 20:30 Ondansetron HCl 4 mg Q4HP PRN IV 10/04/24 20:30 Docusate Sodium 100 mg BIDPRN PRN PO 10/04/24 20:30 Acetaminophen 650 mg Q6HP PRN PO 10/04/24 20:30 Morphine Sulfate 2 mg Q4HPRN PRN IV 10/04/24 20:30 Nitroglycerin 0.4 mg Q5MINP PRN SL 10/04/24 23:00 Morphine Sulfate 2 mg Q30M PRN IV 10/04/24 23:00 Potassium Chloride/Dextrose/ Sod Cl 1,000 ml @ 100 mls/hr Q10H IV 10/05/24 15:00 10/06/24 03:09 100 MLS/HR objective GEN: NAD ABD: soft. NT/ND laboratory and microbiology Laboratory Tests 10/06/24 07:05 Test 10/06/24 07:05 Range/Units Serum Glucose 108 H 74-106 mg/dL Assessment/Plan A: 1. Small-bowel obstruction likely resolving. P: 1. SBFT with gastrografin today Plan discussed with: Patient VICTORIANO IGLESIAS MD Oct 06, 2024 09:40
[2024-10-06] MEDS ORDERED: GASTROGRAFIN 120 ML SOL ONE (10:31)
--- NOTE | 2024-10-06 14:21 | DVH ---
Procedure: XY SMALL BOWEL SERIES-W GASTROGRA Exam Date: 10/06/2024 10:51 AM Reason for study/Clinical History: SBO Comparison Study: None Technique: Single contrast small bowel series performed. Findings: Initial tray room worker view of the abdomen and pelvis appears demonstrates no acute process. Contrast is identified within the colon by 1 h. This represents a normal small bowel transit time. Small bowel loops are normal in size. Normal mucosal pattern. No evidence of small bowel obstructi on, stricture, or mucosal abnormality. The terminal ileum is well visualized and is unremarkable. IMPRESSION: Normal small bowel series. END IMPRESSION:
--- NOTE | 2024-10-06 18:26 | DVHPN2 ---
Subjective Better Had 2 BMs Small bowel series reportedly normal Reviewed: H&P, Labs Changes from previous H/P or p: Changes Eyes: No Pain, No Vision change, No Conjunctivae inflammation, No Eyelid inflammation, No Other, No Redness ENT: No Ear pain, No Ear discharge, No Nose pain, No Nose discharge, No Nose congestion, No Mouth pain, No Mouth swelling, No Throat pain, No Throat swelling, No Other Cardiovascular: No Chest Pain, No Palpitations, No Orthopnea, No Paroxysmal Noc. Dyspnea, No Edema, No Lt Headedness, No Other Respiratory: No Cough, No Dry, No Shortness of breath, No SOB with excertion, No Wheezing, No Hemoptysis, No Pleuritic Pain, No Sputum, No Other Gastrointestinal: No Nausea; Vomiting, Abdominal Pain; No Diarrhea, No Constipation, No Melena, No Hematochezia, No Other Genitourinary: No Dysuria, No Frequency, No Incontinence, No Hematuria, No Retention, No Other Musculoskeletal: No other, No neck pain, No shoulder pain, No arm pain, No back pain, No hand pain, No leg pain, No foot pain Skin: No Rash, No Lesions, No Jaundice, No Bruising, No Other Objective Vitals Vital Signs Date Time Temp Pulse Resp B/P (MAP) Pulse Ox O2 Delivery O2 Flow Rate FiO2 10/06/24 16:41 98.2 62 18 110/72 (85) 98 98.2 10/06/24 08:00 Room Air* 0 21 Intake/Output Intake and Output 10/06/24 07:00 Intake Total 0 ml Output Total 100 ml Balance -100 ml Intake Oral 0 ml Output Urine Total 100 ml Stool Total 0 ml # Voids 2 General Appearance: Alert, Oriented X3 Lungs: Clear to auscultation Cardiovascular: Regular rate, Normal S1, Normal S2 Abdomen: Other (distended) Medications Current Medications Medications Dose Ordered Sig/Stan Route Start Time Stop Time Status Last Admin Dose Admin Acetaminophen/ Hydrocodone Bitart 1 tab Q4HP PRN PO 10/04/24 20:30 Ondansetron HCl 4 mg Q4HP PRN IV 10/04/24 20:30 Docusate Sodium 100 mg BIDPRN PRN PO 10/04/24 20:30 Acetaminophen 650 mg Q6HP PRN PO 10/04/24 20:30 Morphine Sulfate 2 mg Q4HPRN PRN IV 10/04/24 20:30 Nitroglycerin 0.4 mg Q5MINP PRN SL 10/04/24 23:00 Morphine Sulfate 2 mg Q30M PRN IV 10/04/24 23:00 Potassium Chloride/Dextrose/ Sod Cl 1,000 ml @ 100 mls/hr Q10H IV 10/05/24 15:00 10/06/24 17:24 100 MLS/HR Laboratory Results Laboratory Tests 10/06/24 07:05 Chemistry Test 10/06/24 07:05 Calcium Level 9.9 mg/dL (8.7-10.4) Coagulation Test 10/06/24 07:05 Prothrombin Time 11.2 sec (9.3-11.8) Prothrombin Time INR 1.06 (0.9-1.15) Activated Partial Thromboplast Time 27.9 SEC (24.5-34.5) Assessment/Plan Assessment/Plan Abdominal pain due to bowel obstruction Partial small bowel obstruction, resolved h/o colon cancer PLAN: Clear liquids NG tube removed IV fluids Surgical consult on board Pain control Full code Advanced directives discussed x 17 minutes Plan discussed with: Patient Date of Service: Oct 06, 2024 Billing Provider: MOISE CLARK MD Common Visit Codes: [id number] INP/OBS CARE(HIGH) Secondary Visit Codes: [id number] CARE PLAN 30 MINUTES MOISE CLARK MD Oct 06, 2024 18:26
[2024-10-07] VITALS (7 sets, daily range): BP systolic 103–118; BP diastolic 72–83; PULSE 53–72; RESP 18–20; TEMP 97.7–98.5; O2SAT 96–99
[2024-10-07 05:41] LABS: Basophils # (auto) 0 10 ^3/uL (0-0.2); Basophils % (auto) 0.2 % (0.0-2.0); Eosinophils # (auto) 0 10 ^3/uL (0-0.8); Hematocrit 43.8 % (41.0-53.0); Hemoglobin 15.3 g/dL (13.5-17.5); Lymphocytes # (auto) 1.5 10 ^3/uL (0.4-5.4); Lymphocytes % (auto) 31.4 % (10.0-50.0); Mean Corpuscular Hemoglobin 30.5 pg (28.0-32.0); Mean Corpuscular Hgb Conc. 34.9 g/dL (32.0-36.0); Mean Corpuscular Volume 87.4 fL (80.0-100.0); Monocytes # (auto) 0.6 10 ^3/uL (0-1.3); Monocytes % (auto) 12.3 % (0.0-12.0); Neutrophils # (auto) 2.6 10 ^3/uL (1.6-8.6); Neutrophils % (auto) 55.1 % (37.0-80.0); Nucleated Red Blood Cells % 0.1 %; Platelet Count (auto) 177 10^3/uL (140-450); Red Blood Cells 5.01 10^6/uL (4.5-5.90); Red Cell Distribution Width 13.8 % (11.8-14.3); White Blood Cell 4.8 10^3/uL (4.4-10.8)
[2024-10-07 05:51] LABS: Alanine Aminotransferase 14 U/L (7-40); Albumin 4.5 g/dL (3.2-4.8); Alkaline Phosphatase 87 U/L (46-116); Anion Gap 8 (5-15); BUN/Creatinine Ratio 6.1 (10.0-20.0); Calcium 9.7 mg/dL (8.7-10.4); Carbon Dioxide 26 mmol/L (20-31); Chloride 103 mmol/L (98-107); Glucose 94 mg/dL (74-106); Magnesium 2.3 mg/dL (1.6-2.6); Sodium 137 mmol/L (136-145); Total Protein 6.7 g/dL (5.7-8.2)
[2024-10-07 05:52] LABS: Bilirubin, Total 1.1 mg/dL (0.2-1.0)
[2024-10-07 05:54] LABS: Aspartate Aminotransferase 11 U/L (13-40); Blood Urea Nitrogen 5 mg/dL (9-23)
--- NOTE | 2024-10-07 09:45 | DVHPN2 ---
Progress Note Date Seen: Oct 07, 2024 Medical Necessity Reason Pt with a Central, PICC or Fol: No Objective vital signs Vital Sign Date Time Temp Pulse Resp B/P (MAP) Pulse Ox O2 Delivery O2 Flow Rate FiO2 10/07/24 08:47 97.7 72 20 103/72 (82) 98 97.7 10/06/24 20:00 Room Air* 0 21 Total Intake and Output 10/06/24 10/06/24 10/07/24 15:00 23:00 07:00 Intake Total 0 ml 1550 ml Output Total 600 ml Balance 0 ml 950 ml medications Current Medications Medications Dose Ordered Sig/Stan Route Start Time Stop Time Status Last Admin Dose Admin Acetaminophen/ Hydrocodone Bitart 1 tab Q4HP PRN PO 10/04/24 20:30 Ondansetron HCl 4 mg Q4HP PRN IV 10/04/24 20:30 Acetaminophen 650 mg Q6HP PRN PO 10/04/24 20:30 Morphine Sulfate 2 mg Q4HPRN PRN IV 10/04/24 20:30 Nitroglycerin 0.4 mg Q5MINP PRN SL 10/04/24 23:00 Morphine Sulfate 2 mg Q30M PRN IV 10/04/24 23:00 Potassium Chloride/Dextrose/ Sod Cl 1,000 ml @ 100 mls/hr Q10H IV 10/05/24 15:00 10/07/24 06:25 100 MLS/HR laboratory and microbiology Laboratory Tests 10/07/24 04:45 Test 10/07/24 04:45 Range/Units Serum Glucose 94 74-106 mg/dL Problem List/Assessment/Plan Problem List/Assessment/Plan 10/07/24 patient's pain is resolved, passing flatus and having BM's, abdomen non distended, nontender Plan discussed with: Patient, Spouse, Other BRITNEY COOK MD Oct 07, 2024 09:45
--- NOTE | 2024-10-07 10:32 | DVHPN2 ---
Subjective Doing better Tolerating clear liquid diet No abdominal pain no nausea no vomiting Reviewed: H&P, Labs Changes from previous H/P or p: Changes Eyes: No Pain, No Vision change, No Conjunctivae inflammation, No Eyelid inflammation, No Other, No Redness ENT: No Ear pain, No Ear discharge, No Nose pain, No Nose discharge, No Nose congestion, No Mouth pain, No Mouth swelling, No Throat pain, No Throat swelling, No Other Cardiovascular: No Chest Pain, No Palpitations, No Orthopnea, No Paroxysmal Noc. Dyspnea, No Edema, No Lt Headedness, No Other Respiratory: No Cough, No Dry, No Shortness of breath, No SOB with excertion, No Wheezing, No Hemoptysis, No Pleuritic Pain, No Sputum, No Other Gastrointestinal: No Nausea; Vomiting, Abdominal Pain; No Diarrhea, No Constipation, No Melena, No Hematochezia, No Other Genitourinary: No Dysuria, No Frequency, No Incontinence, No Hematuria, No Retention, No Other Musculoskeletal: No other, No neck pain, No shoulder pain, No arm pain, No back pain, No hand pain, No leg pain, No foot pain Skin: No Rash, No Lesions, No Jaundice, No Bruising, No Other Objective Vitals Vital Signs Date Time Temp Pulse Resp B/P (MAP) Pulse Ox O2 Delivery O2 Flow Rate FiO2 10/07/24 08:47 97.7 72 20 103/72 (82) 98 97.7 10/06/24 20:00 Room Air* 0 21 Intake/Output Intake and Output 10/07/24 07:00 Intake Total 1550 ml Output Total 600 ml Balance 950 ml Intake Oral 550 ml IV Total 1000 ml Output Urine Total 600 ml # Voids 6 # Bowel Movements 9 General Appearance: Alert, Oriented X3 Lungs: Clear to auscultation Cardiovascular: Regular rate, Normal S1, Normal S2 Abdomen: Other (distended) Medications Current Medications Medications Dose Ordered Sig/Stan Route Start Time Stop Time Status Last Admin Dose Admin Acetaminophen/ Hydrocodone Bitart 1 tab Q4HP PRN PO 10/04/24 20:30 Ondansetron HCl 4 mg Q4HP PRN IV 10/04/24 20:30 Acetaminophen 650 mg Q6HP PRN PO 10/04/24 20:30 Morphine Sulfate 2 mg Q4HPRN PRN IV 10/04/24 20:30 Nitroglycerin 0.4 mg Q5MINP PRN SL 10/04/24 23:00 Morphine Sulfate 2 mg Q30M PRN IV 10/04/24 23:00 Potassium Chloride/Dextrose/ Sod Cl 1,000 ml @ 100 mls/hr Q10H IV 10/05/24 15:00 10/07/24 06:25 100 MLS/HR Laboratory Results Laboratory Tests 10/07/24 04:45 Chemistry Test 10/07/24 04:45 Albumin 4.5 g/dL (3.2-4.8) Calcium Level 9.7 mg/dL (8.7-10.4) Magnesium Level 2.3 mg/dL (1.6-2.6) Total Protein 6.7 g/dL (5.7-8.2) LFT Test 10/07/24 04:45 Alanine Aminotransferase (ALT) 14 U/L (7-40) Alkaline Phosphatase 87 U/L (46-116) Aspartate Amino Transferase (AST) 11 U/L (13-40) L Total Bilirubin 1.1 mg/dL (0.2-1.0) H Assessment/Plan Assessment/Plan Abdominal pain due to bowel obstruction Partial small bowel obstruction, resolved h/o colon cancer PLAN: Clear liquids NG tube removed IV fluids Surgical consult on board Pain control Full code Advanced directives discussed x 17 minutes 10/07/2024: Advance diet slowly as tolerated Monitor closely The rest of the management will depend on the hospital course Plan discussed with: Patient My Orders Orders - MOISE CLARK MD Procedure Category Date Status Time Full Liq Diet DIET 10/07/24 Transmitted Lunch Date of Service: Oct 07, 2024 Billing Provider: MOISE CLARK MD Common Visit Codes: [id number] INP/OBS CARE(HIGH) MOISE CLARK MD Oct 07, 2024 10:32
[2024-10-08 01:00] VITALS: BP 105/61; PULSE 53; RESP 17; TEMP 98; O2SAT 97
[2024-10-08 05:00] VITALS: BP 98/66; PULSE 53; RESP 18; TEMP 97.7; O2SAT 98
[2024-10-08 06:26] LABS: Anion Gap 10 (5-15); Calcium 9.6 mg/dL (8.7-10.4); Carbon Dioxide 25 mmol/L (20-31); Chloride 103 mmol/L (98-107); Potassium 3.7 mmol/L (3.5-5.1); Sodium 138 mmol/L (136-145)
[2024-10-08 06:32] LABS: Glucose 100 mg/dL (74-106)
[2024-10-08 06:33] LABS: Magnesium 2.1 mg/dL (1.6-2.6)
[2024-10-08 06:41] LABS: BUN/Creatinine Ratio 6.5 (10.0-20.0); Blood Urea Nitrogen < 5 mg/dL (9-23)
[2024-10-08 08:30] VITALS: PULSE 48; O2SAT 99
[2024-10-08 08:52] VITALS: BP 106/67; PULSE 53; RESP 18; TEMP 98.3; O2SAT 94
--- NOTE | 2024-10-08 10:27 | ECG ---
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
[2024-10-08 13:00] VITALS: BP 108/71; PULSE 57; RESP 18; TEMP 98.7; O2SAT 94
--- NOTE | 2024-10-08 20:57 | DVHDS2 ---
Discharge Summary Date of Admission October 04, 2024 at 22:47 Date of Discharge: Oct 08, 2024 Labs/Diagnostic Data: Laboratory Results Test 10/08/24 05:07 10/07/24 04:45 10/06/24 07:05 10/04/24 19:19 Sodium Level 138 mmol/L (136-145) Potassium Level 3.7 mmol/L (3.5-5.1) Chloride Level 103 mmol/L (98-107) Carbon Dioxide Level 25 mmol/L (20-31) Anion Gap 10 (5-15) Blood Urea Nitrogen < 5 mg/dL (9-23) Creatinine 0.77 mg/dL (0.700-1.30) Glomerular Filtration Rate Calc 118 mL/min (>90) BUN/Creatinine Ratio 6.5 (10.0-20.0) Serum Glucose 100 mg/dL (74-106) Calcium Level 9.6 mg/dL (8.7-10.4) Magnesium Level 2.1 mg/dL (1.6-2.6) White Blood Count 4.8 10^3/uL (4.4-10.8) Red Blood Count 5.01 10^6/uL (4.5-5.90) Hemoglobin 15.3 g/dL (13.5-17.5) Hematocrit 43.8 % (41.0-53.0) Mean Corpuscular Volume 87.4 fL (80.0-100.0) Mean Corpuscular Hemoglobin 30.5 pg (28.0-32.0) Mean Corpuscular Hemoglobin Concent 34.9 g/dL (32.0-36.0) Red Cell Distribution Width 13.8 % (11.8-14.3) Platelet Count 177 10^3/uL (140-450) Mean Platelet Volume 7.9 fL (6.9-10.8) Neutrophils (%) (Auto) 55.1 % (37.0-80.0) Lymphocytes (%) (Auto) 31.4 % (10.0-50.0) Monocytes (%) (Auto) 12.3 % (0.0-12.0) Eosinophils (%) (Auto) 1.0 % (0.0-7.0) Basophils (%) (Auto) 0.2 % (0.0-2.0) Neutrophils # (Auto) 2.6 10 ^3/uL (1.6-8.6) Lymphocytes # (Auto) 1.5 10 ^3/uL (0.4-5.4) Monocytes # (Auto) 0.6 10 ^3/uL (0-1.3) Eosinophils # (Auto) 0 10 ^3/uL (0-0.8) Basophils # (Auto) 0 10 ^3/uL (0-0.2) Nucleated Red Blood Cells 0.1 % Total Bilirubin 1.1 mg/dL (0.2-1.0) Aspartate Amino Transferase (AST) 11 U/L (13-40) Alanine Aminotransferase (ALT) 14 U/L (7-40) Alkaline Phosphatase 87 U/L (46-116) Total Protein 6.7 g/dL (5.7-8.2) Albumin 4.5 g/dL (3.2-4.8) Prothrombin Time 11.2 sec (9.3-11.8) Prothrombin Time INR 1.06 (0.9-1.15) Activated Partial Thromboplast Time 27.9 SEC (24.5-34.5) Lipase 34 U/L (12-53) Other Laboratory Tests 10/08/24 05:07 10/07/24 04:45 Brief Hx & Hospital Course: Final diagnoses: Abdominal pain due to bowel obstruction Partial small bowel obstruction, resolved h/o colon cancer 39-year-old male with a history of colon cancer and surgery in the past came with nausea and vomiting and possible bowel obstruction on CT scan of the abdomen and therefore he was kept NPO and had an NG tube and then a small bowel series was done which showed no bowel obstruction and then he started having bowel movements NG tube was discontinued and he had clear liquid diet which he tolerated and then it was advanced to full liquids and then this morning he was asymptomatic and therefore he was discharged home He will follow up as an outpatient Advance his diet slowly as tolerated Condition at Discharge: Stable Final Diagnosis/Problems List Abdominal pain due to bowel obstruction Partial small bowel obstruction, resolved h/o colon cancer Discharge Disposition: Home SNF Discharge Will this Physician continue t: No Discharge Instruct/Medications Diet: Cardiac 2g Na,low cholest Diet comment: FOLLOW UP WITH PRIMARY CARE PROVIDER SOON POSSIBLE Activity: No Restrictions, As Tolerated Follow Up/Referral: PCP BRYANNA Medications: Same home meds Discharge Statement: "Patient was advised to return to the ER or call 911 if any headaches, dizziness, shortness of breath, chest pain, abdominal pain, bleeding, fevers, or worsening of medical condition. Patient was counseled about treatment plan, medications, possible side effects, patientverbalized understanding. All questions were answered to the best of my ability. This discharge took greater then 30 minutes in planning, reviewing documentation, counseling the patient, and discussing with other team members." ASSESSMENT ASSESSMENT Assessment Abdominal pain due to bowel obstruction Partial small bowel obstruction, resolved h/o colon cancer Date of Service: Oct 08, 2024 Billing Provider: MOISE CLARK MD Common Visit Codes: 63617-IGJ/OBS DISCH DAY >30min MOISE CLARK MD Oct 08, 2024 20:57
== END 2024-10-08 12:01 | disposition home or self-care (01) | DRG 247 ==
LOC: ER 18:47 → OVERFLOW 22:47 → TELE-WESTW 23:56
PROVIDERS: ADMIT Internal Medicine Geriatric Medicine; ATTEND Internal Medicine Geriatric Medicine
PROC: 0D9670Z Drainage of Stomach with Drainage Device, Via Natural or Artificial Opening (ICD-10-PCS; principal; 2024-10-04)
DX: K56.600 Partial intestinal obstruction, unspecified as to cause (principal); Z85.038 Personal history of other malignant neoplasm of large intestine
CPT/HCPCS: 36415; 71045; 74176; 74250; 80048; 80053; 83690; 83735; 85025; 85610; 85730; 93005; 96361; 96374; 96375; 99291; G0378; J2405

== ENCOUNTER 2025-01-20 14:52 | Inpatient (IN) | payer MEDICAID ==
[~2025-01-20] VITALS: Ht 177.8 cm; Wt 83.4 kg
--- NOTE | 2025-01-20 15:30 | ED.PDOC ---
GI ASSESSMENT HPI Comments 39y M who presents to the ED for chief complaint of abdominal pain. Pt states he has history of colon cancer dx 2023 and states pt was in remission for cancer but states the cancer came back 6 months prior and pt is currently receiving chemo and immunoradiation. Pt presents with spouse who states pt last had chemo 1x week prior and states since, he has been having diffuse abdominal pain. Pt states the pain is intermittent, rating the pain 8/10, diffusely located, with no noted exacerbating or relieving factors. Pt states he did did have bowel obstruction 4 months prior. Pt otherwise has been having vomiting and diarrhea. Pt denies any other symptoms. Chief Complaint: Abdominal Pain Time Seen by MD: 15:33 Reviewed Notes: Medications, Allergies Allergies: Coded Allergies: NO KNOWN ALLERGIES (Unverified , 04/05/19) Home Meds No Active Prescriptions or Reported Meds Information Source: Patient, Spouse Mode of Arrival: Ambulatory Brought in by: spouse Timing: Days Duration: Since onset Prehospital treatment: None Quality: Aching Vomitus: Food Particles Stool: Moderate Severity: Moderate Recent: Other (chemo) Recent Hx of: Other (cancer) Pain Location: Diffuse Modifying Factors: Nothing Associated sign and symptoms: Vomiting, Diarrhea, Abdominal Pain Past Medical History PAST MEDICAL HISTORY: Cancer Surgical History (Other): colon cancer partial resection Family History Family History: Reviewed,noncontributory to illness Social History Smoker: Non-Smoker Alcohol: Denies ETOH Use Drugs: Denies Drug Use Lives In: Home Constitutional: denies: chills, diaphoresis, fatigue, fever, malaise, sweats, weakness, others EENTM: denies: blurred vision, double vision, ear bleeding, ear discharge, ear drainage, ear pain, ear ringing, eye pain, eye redness, hearing loss, mouth pain, mouth swelling, nasal discharge, nose bleeding, nose congestion, nose pain, photophobia, tearing, throat pain, throat swelling, voice changes, others Respiratory: denies: cough, hemoptysis, orthopnea, SOB at rest, shortness of breath, SOB with excertion, stridor, wheezing, others Cardiovascular: denies: chest pain, dizzy spells, diaphoresis, Dyspnea on exertion, edema, irregular heart beat, left arm pain, lightheadedness, palpitations, PND, syncope, others Gastrointestinal: reports: abdominal pain, diarrhea, nausea, vomiting; denies: abdomen distended, blood streaked bowels, constipated, dysphagia, difficulty swallowing, hematemesis, melena, poor appetite, poor fluid intake, rectal bleeding, rectal pain, others Genitourinary: denies: burning, dysuria, flank pain, frequency, hematuria, incontinence, penile discharge, penile sore, pain, testicle pain, testicle swelling, urgency, others Neurological: denies: dizziness, fainting, headache, left sided numbness, left sided weakness, numbness, paresthesia, pre-existing deficit, right sided numbness, right sided weakness, seizure, speech problems, tingling, tremors, weakness, others Musculoskeletal: denies: back pain, gout, joint pain, joint swelling, muscle pain, muscle stiffness, neck pain, others Integumetry: denies: bruises, change in color, change in hair/nails, dryness, laceration, lesions, lumps, rash, wounds, others Allergic/Immunocompromised: denies: Difficulty Healing, Frequent Infections, Hives, Itching, others Hematologic/Lymphatic: denies: anemia, blood clots, easy bleeding, easy bruising, swollen glands, others Endocrine: denies: excessive hunger, excessive sweating, excessive thirst, excessive urination, flushing, intolerance to cold, intolerance to heat, unexplained weight gain, unexplained weight loss, others Psychiatric: denies: anxiety, bipolar disorder, depression, hopeless, panic disorder, schizophrenia, sleepless, suicidal, others All Other Systems: Reviewed and Negative Physical Exam General Appearance: Moderate Distress HEENT: Pale Conjuntivae (L), Pale Conjuntivae (R), Pharynx Normal, TMs Normal Neck: Full Range of Motion, Non-Tender, Normal, Normal Inspection Respiratory: Chest Non-Tender, Lungs Clear, No Accessory Muscle Use, No Respiratory Distress, Normal Breath Sounds Cardiovascular: No Edema, No JVD, No Murmur, No Gallop, Normal Peripheral Pulses, Regular Rate/Rhythm Breast Exam: Deferred Gastrointestinal: Diffuse, No Organomegaly, No Pulsatile Mass, Normal Bowel Sounds, Soft, Tenderness Genitalia: Deferred Pelvic: Deferred Rectal: Deferred Extremities: No calf tenderness, Normal capillary refill, Normal inspection, Normal range of motion, Non-tender, No pedal edema Musculoskeletal : Apperance: Normal Neurologic: Alert, pick and shovel man II-XII nml as Tested, Motor Weakness, Normal Affect, Normal Mood, No Sensory Deficits Cerebellar Function: Normal Reflexes: Normal Skin: Dry, Pallor, Warm Lymphatic: No Adenopathy Was a procedure done? Was a procedure done?: No GI differential Dx Differential Diagnosis: Bowel Obstruction, Constipation, Gastritis/PUD, Gastroenteritis, Dehydration, Electrolyte Imbalance, Food Poisoning, Bacterial, Viral X-Ray, Labs, Meds, VS Vital Signs Date Time Temp Pulse Resp B/P (MAP) Pulse Ox O2 Delivery O2 Flow Rate FiO2 01/20/25 16:28 87 19 119/92 01/20/25 16:26 87 19 119/92 (101) 95 01/20/25 14:54 97.6 83 18 106/85 100 97.6 Lab Test 01/20/25 15:40 Range/Units White Blood Count 7.3 4.4-10.8 10^3/uL Red Blood Count 5.53 4.5-5.90 10^6/uL Hemoglobin 16.3 13.5-17.5 g/dL Hematocrit 46.0 41.0-53.0 % Mean Corpuscular Volume 83.2 80.0-100.0 fL Mean Corpuscular Hemoglobin 29.5 28.0-32.0 pg Mean Corpuscular Hemoglobin Concent 35.5 32.0-36.0 g/dL Red Cell Distribution Width 14.4 H 11.8-14.3 % Platelet Count 240 140-450 10^3/uL Mean Platelet Volume 6.6 L 6.9-10.8 fL Neutrophils (%) (Auto) 85.3 H 37.0-80.0 % Lymphocytes (%) (Auto) 8.5 L 10.0-50.0 % Monocytes (%) (Auto) 6.1 0.0-12.0 % Eosinophils (%) (Auto) 0.0 0.0-7.0 % Basophils (%) (Auto) 0.1 0.0-2.0 % Neutrophils # (Auto) 6.2 1.6-8.6 10 ^3/uL Lymphocytes # (Auto) 0.6 0.4-5.4 10 ^3/uL Monocytes # (Auto) 0.4 0-1.3 10 ^3/uL Eosinophils # (Auto) 0 0-0.8 10 ^3/uL Basophils # (Auto) 0 0-0.2 10 ^3/uL Nucleated Red Blood Cells 0.7 % Sodium Level 133 L 136-145 mmol/L Potassium Level 3.6 3.5-5.1 mmol/L Chloride Level 97 L 98-107 mmol/L Carbon Dioxide Level 24 20-31 mmol/L Anion Gap 12 5-15 Blood Urea Nitrogen 7 L 9-23 mg/dL Creatinine 0.58 L 0.700-1.30 mg/dL Glomerular Filtration Rate Calc 129 >90 mL/min BUN/Creatinine Ratio 12.1 10.0-20.0 Serum Glucose 139 H 74-106 mg/dL Calcium Level 9.5 8.7-10.4 mg/dL Total Bilirubin 0.9 0.2-1.0 mg/dL Aspartate Amino Transferase (AST) 30 13-40 U/L Alanine Aminotransferase (ALT) 56 H 7-40 U/L Alkaline Phosphatase 116 46-116 U/L Total Protein 7.3 5.7-8.2 g/dL Albumin 4.5 3.2-4.8 g/dL Lipase 27 12-53 U/L Current Medications Medications (Trade) Dose Ordered Sig/Stan Route Start Time Stop Time Status Last Admin Ondansetron HCl (Zofran) 4 mg ONCE ONCE IV 01/20/25 15:30 01/20/25 15:33 DC 01/20/25 16:27 Morphine Sulfate 4 mg ONCE ONCE IV 01/20/25 15:30 01/20/25 15:33 DC 01/20/25 16:28 PROCEDURE(s): ABPL - CT AB PEL WO CON-NO ORAL OR IV IMPRESSION: 1. Fluid-filled and distended stomach as well as jejunum. Findings suggest small bowel obstruction. Consider small-bowel follow-through for further evaluation. IV Hep-Lock was established The patient was given morphine 4 mg IV push The patient was given Zofran 4 mg IV push for nausea The CBC and chemistry panel are within normal limits The lipase is within normal limits At this time, the patient is being admitted to the hospitalist And NG tube is being placed at this time The patient is being admitted. Images Reviewed?: Images reviewed and evaluated by me Time of 1ST Reevaluation: 16:05 Reevaluation 1ST: Unchanged Patient Education/Counseling: Diagnosis, Treatment, Prognosis Family Education/Counseling: Diagnosis, Treatment, Prognosis SEPSIS Sepsis Screen Date sepsis recognized/suspect: Jan 20, 2025 Time Sepsis recognized/suspect: 7 Recent Procedure: No On Antibiotic Therapy: No Respiratory Rate >20: No Heart Rate >90: No Temp<36 C (96.8 F) or >38.3 C: No SBP <90 or MAP <65 mmHG: No New Acute Mental Status Change: No Is the patient on CPAP, BIPAP,: No Physician Orders Urinalysis (01/20/25 15:25) Ct Ab Pel Wo Con-No Oral Or Iv (01/20/25 15:25) Heplock Iv (01/20/25 15:25) Ngt/Ogt (01/20/25 ) Vital Signs Date Time Temp Pulse Resp B/P (MAP) Pulse Ox O2 Delivery O2 Flow Rate FiO2 01/20/25 16:28 87 19 119/92 01/20/25 16:26 87 19 119/92 (101) 95 01/20/25 14:54 97.6 83 18 106/85 100 97.6 Laboratory Tests Test 01/20/25 15:40 White Blood Count 7.3 10^3/uL (4.4-10.8) Medications Medications Dose Ordered Sig/Stan Route Start Time Stop Time Status Last Admin Dose Admin Morphine Sulfate 4 mg ONCE ONCE IV 01/20/25 15:30 01/20/25 15:33 DC 01/20/25 16:28 Ondansetron HCl 4 mg ONCE ONCE IV 01/20/25 15:30 01/20/25 15:33 DC 01/20/25 16:27 Departure 1 Departure Time of Disposition: 18:38 Impression: Primary Impression: Intractable abdominal pain Additional Impression: Small bowel obstruction Disposition: 09 ADMITTED INPATIENT Admit to: Med Surg Condition: Fair e-Prescriptions No Active Prescriptions or Reported Meds Critical Care Note Critical Care Time?: No Stability Stability form required: Yes Unstable for transfer: ED Physician Assesment (Clinical assesment) Heart Score Heart Score: Heart Score Response (Comments) Value History N/A 0 EKG N/A 0 Age N/A 0 Risk Factors N/A 0 Troponin N/A 0 Total 0 I personally scribed for NISHI PORTILLO MD ([email or web address]) on 01/20/25 at 15:30. Electronically submitted by Valerie Mohr ([email or web address]). I personally scribed for NISHI PORTILLO MD ([email or web address]) on 01/20/25 at 15:40. Electronically submitted by Valerie Mohr ([facility] I personally scribed for NISHI PORTILLO MD ([email or web address]) on 01/20/25 at 16:44. Electronically submitted by Valerie Mohr ([facility] NISHI PORTILLO MD Jan 20, 2025 15:30
[2025-01-20 15:55] LABS: Hematocrit 46.0 % (41.0-53.0); Hemoglobin 16.3 g/dL (13.5-17.5); Mean Corpuscular Hemoglobin 29.5 pg (28.0-32.0); Mean Corpuscular Volume 83.2 fL (80.0-100.0); Nucleated Red Blood Cells % 0.7 %
[2025-01-20 16:05] LABS: Alkaline Phosphatase 116 U/L (46-116)
[2025-01-20 16:06] LABS: Albumin 4.5 g/dL (3.2-4.8); Anion Gap 12 (5-15); BUN/Creatinine Ratio 12.1 (10.0-20.0); Bilirubin, Total 0.9 mg/dL (0.2-1.0); Calcium 9.5 mg/dL (8.7-10.4); Carbon Dioxide 24 mmol/L (20-31); Lipase 27 U/L (12-53); Potassium 3.6 mmol/L (3.5-5.1); Total Protein 7.3 g/dL (5.7-8.2)
[2025-01-20 16:07] LABS: Alanine Aminotransferase 56 U/L (7-40); Blood Urea Nitrogen 7 mg/dL (9-23); Chloride 97 mmol/L (98-107); Glucose 139 mg/dL (74-106); Sodium 133 mmol/L (136-145)
[2025-01-20] MEDS: ONDANSETRON HCL 4 MG/2 ML VIAL IV ONE (16:27)
[2025-01-20] MEDS: MORPHINE SULFATE 4 MG/ML SYR/VIAL IV ONE (16:28)
--- NOTE | 2025-01-20 16:33 | DVH ---
Exam: CT CT AB PEL WO CON-NO ORAL OR IV History: pain Comparison Study: CT CT AB PEL WO CON-NO ORAL OR IV on DOS: 10/04/24 TECHNIQUE: Multidetector CT of the abdomen was performed from lung bases to pubic symphysis. Imaging was performed without IV contrast. Axial, coronal and sagittal multiplanar reformats were obtained fr om the axial data set by the technologist. Radiation Dose Information: CT Dose: CTDI volume is 11.55 mGy. Dose-length product is 696.34 mGy*cm FINDINGS: Evaluation of solid organs is limited due to lack of intravenous contrast use. Findings: Lung Bases: No acute or significant lung base finding. Normal heart size. No pleural or pericardial effusion. Liver: The liver is normal in size. No focal lesions. Gallbladder and Biliary Tree: Unremarkable Spleen: Unremarkable Pancreas: The pancreas is grossly normal in appearance. Adrenal Glands: Unremarkable Kidneys: Kidneys are grossly normal without calculi or hydronephrosis. Bladder: Grossly unremarkable for degree of distention. Bowel: Fluid distended stomach and proximal small bowel. Small bowel is distended with fluid findings suggest small bowel obstruction. Consider small-bowel follow-through.. The appendix is not visualiz ed; however, no secondary findings of acute appendicitis identified. Ascites: Absent Lymphadenopathy: No mesenteric, retroperitoneal or periportal lymphadenopathy. Abdominal Wall and Mesentery: Unremarkable. Vasculature: The visualized abdominal aorta is normal in size and caliber. Evaluation of abdominal a nd pelvic vessels is limited due to lack of intravenous contrast. Pelvic Organs: Unremarkable Musculoskeletal: No aggressive focal bony lesions, acute fractures or dislocation. Soft tissues: Unremarkable IMPRESSION: 1. Fluid-filled and distended stomach as well as jejunum. Findings suggest small bowel obstruction. C onsider small-bowel follow-through for further evaluation. Radiation optimization: All CT scans at this facility use at least one of these dose optimization te chniques: automated exposure control mA and/or kV adjustment per patient size (includes targeted exa ms where dose is matched to clinical indication) or iterative reconstruction.
[2025-01-20] MEDS ORDERED: ACETAMINOPHEN 325 MG TAB PO PRN (18:15)
[2025-01-20] MEDS: SODIUM CHLORIDE 0.9% 1,000 ML IV SCH (18:15)
[2025-01-20] MEDS: ONDANSETRON HCL 4 MG/2 ML VIAL IV PRN (18:46)
[2025-01-20] MEDS: HYDROcodone-ACET 5/325MG TAB PO PRN (18:46)
--- NOTE | 2025-01-20 18:52 | DVHHPRES ---
History of Present Illness Resident Creating Document: LUCÍA IRIZARRY RESIDENT History of Present Illness Jose Luis Howard 39 years old male with a PMH of colon cancer status post resection and currently receiving chemotherapy presented to the ED with the chief complaints of abdominal pain for the last 3 days. Patient received his most recent chemotherapy treatment last Sunday, he was initially fine but on Sunday he began experiencing increasing abdominal pain associated with the bloating that come and goes every 5-7 minutes. Associated symptoms include nausea and vomiting. He is able to pass the gas on his last bowel movement was yesterday. He denies diarrhea, fever, sick contacts, recent travel and other associated symptoms at this time. Three months back patient presented with same symptoms, diagnosed as partial bowel obstruction and again presented with the same complaints. PMH: Colon cancer currently on chemotherapy PSH: Right-sided colon resection Family history: Noncontributory, no history of cancer in family according to the patient Social history: Lives at home. Denies smoking, alcohol and other drug abuse. Patient reported he is ex alcohol user Allergies: No known allergies Patient seen and examined at the bedside. Patient is currently reporting having abdominal pain, bloating like sensation but no nausea or vomiting at this time. Chest CT abdominal pelvis showed findings suggestive of bowel obstruction Review of Systems Allergies: Coded Allergies: NO KNOWN ALLERGIES (Unverified , 04/05/19) Medications Current Medications Medications Dose Ordered Sig/Stan Route Start Time Stop Time Status Last Admin Dose Admin Sodium Chloride 1,000 ml @ 60 mls/hr [id number] IV 01/20/25 18:15 Acetaminophen/ Hydrocodone Bitart 1 tab Q4HP PRN PO 01/20/25 18:15 Ondansetron HCl 4 mg Q4HP PRN IV 01/20/25 18:15 Enoxaparin Sodium 40 mg DAILY SC 01/21/25 10:00 UNV Acetaminophen 650 mg Q6HP PRN PO 01/20/25 18:15 Exam Vital Signs Vital Signs Date Time Temp Pulse Resp B/P (MAP) Pulse Ox O2 Delivery O2 Flow Rate FiO2 01/20/25 16:28 87 19 119/92 01/20/25 16:26 95 01/20/25 14:54 97.6 97.6 Exam Pt is lying on bed General Appearance: Alert, Oriented X3, Cooperative, Not in acute distress HEENT: Atraumatic, Mucous membranes moist/pink Respiratory: Clear to auscultation, Normal air movement, No added sounds Cardiovascular: Regular rate, Normal S1, Normal S2, No murmurs Abdominal: Hypoactive bowel sounds, mild tenderness at the umbilical region Soft, no distention Extremities: No edema, Normal pulses, No tenderness/swelling Skin: No Significant rash, except past surgical scars Neuro: Normal speech, sensorimotor deficits none Psych/Mental Status: Mental status NL, Mood NL Nurse was there as human resources technician during examination Labs/Xrays Labs Test 01/20/25 15:40 Range/Units White Blood Count 7.3 4.4-10.8 10^3/uL Red Blood Count 5.53 4.5-5.90 10^6/uL Hemoglobin 16.3 13.5-17.5 g/dL Hematocrit 46.0 41.0-53.0 % Mean Corpuscular Volume 83.2 80.0-100.0 fL Mean Corpuscular Hemoglobin 29.5 28.0-32.0 pg Mean Corpuscular Hemoglobin Concent 35.5 32.0-36.0 g/dL Red Cell Distribution Width 14.4 H 11.8-14.3 % Platelet Count 240 140-450 10^3/uL Mean Platelet Volume 6.6 L 6.9-10.8 fL Neutrophils (%) (Auto) 85.3 H 37.0-80.0 % Lymphocytes (%) (Auto) 8.5 L 10.0-50.0 % Monocytes (%) (Auto) 6.1 0.0-12.0 % Eosinophils (%) (Auto) 0.0 0.0-7.0 % Basophils (%) (Auto) 0.1 0.0-2.0 % Neutrophils # (Auto) 6.2 1.6-8.6 10 ^3/uL Lymphocytes # (Auto) 0.6 0.4-5.4 10 ^3/uL Monocytes # (Auto) 0.4 0-1.3 10 ^3/uL Eosinophils # (Auto) 0 0-0.8 10 ^3/uL Basophils # (Auto) 0 0-0.2 10 ^3/uL Nucleated Red Blood Cells 0.7 % Sodium Level 133 L 136-145 mmol/L Potassium Level 3.6 3.5-5.1 mmol/L Chloride Level 97 L 98-107 mmol/L Carbon Dioxide Level 24 20-31 mmol/L Anion Gap 12 5-15 Blood Urea Nitrogen 7 L 9-23 mg/dL Creatinine 0.58 L 0.700-1.30 mg/dL Glomerular Filtration Rate Calc 129 >90 mL/min BUN/Creatinine Ratio 12.1 10.0-20.0 Serum Glucose 139 H 74-106 mg/dL Calcium Level 9.5 8.7-10.4 mg/dL Total Bilirubin 0.9 0.2-1.0 mg/dL Aspartate Amino Transferase (AST) 30 13-40 U/L Alanine Aminotransferase (ALT) 56 H 7-40 U/L Alkaline Phosphatase 116 46-116 U/L Total Protein 7.3 5.7-8.2 g/dL Albumin 4.5 3.2-4.8 g/dL Lipase 27 12-53 U/L SEPSIS Sepsis Screen Date sepsis recognized/suspect: Jan 20, 2025 Time Sepsis recognized/suspect: 1456 Recent Procedure: No On Antibiotic Therapy: No Respiratory Rate >20: No Heart Rate >90: No Temp<36 C (96.8 F) or >38.3 C: No SBP <90 or MAP <65 mmHG: No New Acute Mental Status Change: No Is the patient on CPAP, BIPAP,: No Physician Orders Urinalysis (01/20/25 15:25) Ct Ab Pel Wo Con-No Oral Or Iv (01/20/25 15:25) Heplock Iv (01/20/25 15:25) Ngt/Ogt (01/20/25 ) Admit (01/20/25 18:01) Allergies (01/20/25 18:01) Code Status (01/20/25 18:01) Sodium Chloride 0.9% (01/20/25 18:15) Hydrocodone-Acet 5/325mg Tab (Leon 5/32 (01/20/25 18:15) Ondansetron Hcl (Zofran) (01/20/25 18:15) Enoxaparin Sodium (Lovenox) (01/21/25 10:00) Complete Blood Count (01/21/25 04:00) Comprehensive Metabolic Panel (01/21/25 04:00) Npo (Nothing By Mouth) Diet (01/20/25 Dinner) Condition: Fair (01/20/25 18:01) Acetaminophen Tablet (Tylenol Tablet) (01/20/25 18:15) Small Bowel Series-W Gastrogra (01/20/25 18:46) Drug Screen (01/20/25 18:46) Magnesium (01/20/25 18:46) PTPTT (01/20/25 18:46) Urinalysis (01/20/25 18:46) * Surgical Consult (01/20/25 ) Pantoprazole (Protonix) (01/21/25 10:00) Vital Signs Date Time Temp Pulse Resp B/P (MAP) Pulse Ox O2 Delivery O2 Flow Rate FiO2 01/20/25 16:28 87 19 119/92 01/20/25 16:26 87 19 119/92 (101) 95 01/20/25 14:54 97.6 83 18 106/85 100 97.6 Laboratory Tests Test 01/20/25 15:40 White Blood Count 7.3 10^3/uL (4.4-10.8) Medications Medications Dose Ordered Sig/Stan Route Start Time Stop Time Status Last Admin Dose Admin Morphine Sulfate 4 mg ONCE ONCE IV 01/20/25 15:30 01/20/25 15:33 DC 01/20/25 16:28 4 MG Ondansetron HCl 4 mg ONCE ONCE IV 01/20/25 15:30 01/20/25 15:33 DC 01/20/25 16:27 4 MG Assessment/Plan Assessment/Plan # Rule out SBO - admit med surge - supportive management - Leon and Zofran - NPO for now - CT abdominal pelvis showed fluid-filled and distended stomach as well as jejunum - ordered small bowel series - surgical consult - IVF # Colon cancer status post resection and currently on chemotherapy - follow up with Hematology Oncology GI PPX: Protonix VTE ppx: Lovenox Diet: NPO for now Goals of care addressed with the patient for more than 27 minutes: Full code status Case discussed with ,patient and nurse Plan discussed with: Patient My Orders Orders - LUCÍA IRIZARRY RESIDENT Procedure Category Date Status Time Admit ADMIT 01/20/25 Transmitted 18:01 Allergies STEFAN 01/20/25 In Process 18:01 Code Status CODE 01/20/25 Transmitted 18:01 Sodium Chloride 0.9% PHA 01/20/25 In Process 18:15 Hydrocodone-Acet PHA 01/20/25 In Process 5/325mg Tab (Leon 18:15 Ondansetron Hcl PHA 01/20/25 In Process (Zofran) 18:15 Enoxaparin Sodium PHA 01/21/25 Logged (Lovenox) 10:00 Complete Blood Count LAB 01/21/25 Verified 04:00 Comprehensive LAB 01/21/25 Verified Metabolic Panel 04:00 Npo (Nothing By DIET 01/20/25 Transmitted Mouth) Diet Dinner Condition: Fair STEFAN 01/20/25 In Process 18:01 Acetaminophen Tablet PHA 01/20/25 In Process (Tylenol Tablet) 18:15 Small Bowel Series-W XY 01/20/25 Logged Gastrogra 18:46 Drug Screen LAB 01/20/25 Logged 18:46 Magnesium LAB 01/20/25 Logged 18:46 PTPTT LAB 01/20/25 Logged 18:46 Urinalysis LAB 01/20/25 Logged 18:46 * Surgical Consult CONS 01/20/25 Transmitted Pantoprazole PHA 01/21/25 Transmitted (Protonix) 10:00 LUCÍA IRIZARRY RESIDENT Jan 20, 2025 18:52
[2025-01-20 19:22] LABS: INR 1.07 (0.9-1.15); Partial Thromboplastin Time 27.9 SEC (24.5-34.5); Prothrombin Time 11.3 sec (9.3-11.8)
[2025-01-20 22:40] VITALS: PULSE 75; RESP 14; O2SAT 98
[2025-01-21 03:03] LABS: Urine Amorphous Crystal MOD /hpf (None Seen); Urine Protein, UAD TRACE (Negative)
[2025-01-21] MEDS: KETOROLAC TROMETH 30 MG/ML 1ML VIAL IV ONE (03:26)
[2025-01-21 04:13] LABS: Amphetamine Screen, Urine Neg (NEGATIVE); Barbiturate Scree,Urine Neg (NEGATIVE); Benzodiazephine Screen, Urine Neg (NEGATIVE); Cannabinoid Screen, Urine Neg (NEGATIVE); Cocaine Screen, Urine Neg (NEGATIVE); Opiate Scree,Urine Neg (NEGATIVE); Phencyclidine Screen, Urine Neg (NEGATIVE)
[2025-01-21 06:43] LABS: Hematocrit 42.0 % (41.0-53.0); Hemoglobin 15.0 g/dL (13.5-17.5); Mean Corpuscular Hemoglobin 29.7 pg (28.0-32.0); Mean Corpuscular Volume 83.4 fL (80.0-100.0); Nucleated Red Blood Cells % 0.2 %
[2025-01-21 06:56] LABS: Albumin 4.1 g/dL (3.2-4.8); Alkaline Phosphatase 102 U/L (46-116); Anion Gap 10 (5-15); BUN/Creatinine Ratio 9.3 (10.0-20.0); Bilirubin, Total 0.7 mg/dL (0.2-1.0); Calcium 9.7 mg/dL (8.7-10.4); Carbon Dioxide 30 mmol/L (20-31); Potassium 4.5 mmol/L (3.5-5.1); Total Protein 6.6 g/dL (5.7-8.2)
[2025-01-21 06:58] LABS: Alanine Aminotransferase 46 U/L (7-40); Blood Urea Nitrogen 7 mg/dL (9-23); Chloride 93 mmol/L (98-107); Glucose 116 mg/dL (74-106); Sodium 133 mmol/L (136-145)
[2025-01-21] MEDS ORDERED: GASTROGRAFIN 120 ML SOL ONE (07:57)
[2025-01-21 08:00] VITALS: PULSE 65; RESP 16; O2SAT 98
--- NOTE | 2025-01-21 09:20 | DVH ---
Date: 01/21/2025 08:09 AM Examination: XY KUB ABDOMEN SINGLE VIEW History: Small-bowel obstruction Comparison: CT CT AB PEL WO CON-NO ORAL OR IV on DOS: 01/20/25, XY SMALL BOWEL SERIES-W GASTROGRA on D OS: 10/06/24, CT CT AB PEL WO CON-NO ORAL OR IV on DOS: 10/04/24 TECHNIQUE: Frontal views of the abdomen was obtained. FINDINGS: Dilated loops of small bowel are seen measuring up to 6.2 cm. Enteric tube tip projects over the expe cted region of the stomach. The lung bases are unremarkable. No acute osseous abnormality identified. IMPRESSION: Dilated loops of small bowel are seen measuring up to 6.2 cm. Enteric tube tip projects over the expe cted region of the stomach.
[2025-01-21] MEDS ORDERED: ENOXAPARIN SOD 40 MG/0.4 ML SYRINGE SC SCH (10:00)
--- NOTE | 2025-01-21 11:17 | DVHPNRES ---
Progress Note Date Seen: Jan 21, 2025 Resident Creating Document: SEFERINO SHABAZZ RESIDENT Medical Necessity Reason Pt with a Central, PICC or Fol: No Subjective Review of Systems Jose Luis Howard 39 years old male with a PMH of colon cancer status post resection and currently receiving chemotherapy presented to the ED with the chief complaints of abdominal pain for the last 3 days. Patient received his most recent chemotherapy treatment last Sunday, he was initially fine but on Sunday he began experiencing increasing abdominal pain associated with the bloating that come and goes every 5-7 minutes. Associated symptoms include nausea and vomiting. He is able to pass the gas on his last bowel movement was yesterday. He denies diarrhea, fever, sick contacts, recent travel and other associated symptoms at this time. Three months back patient presented with same symptoms, diagnosed as partial bowel obstruction and again presented with the same complaints. Urinalysis negative for UTI, UDS negative. CT abdomen and pelvis [id number] and distended stomach as well as jejunum. Findings suggest small bowel obstruction. X-ray KUB- Dilated loops of small bowel are seen measuring up to 6.2 cm. Enteric tube tip projects over the expected region of the stomach. PMH: Colon cancer currently on chemotherapy PSH: Right-sided colon resection Family history: Noncontributory, no history of cancer in family according to the patient Social history: Lives at home. Denies smoking, alcohol and other drug abuse. 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 Patient reported pain is improving. . CT abdomen and pelvis [id number] and distended stomach as well as jejunum. Findings suggest small bowel obstruction. Appreciate surgery consult, surgery recommended- exchange the NG tube to a 18 Stateless NG tube. NPO with maintenance IV fluids. will re-evaluate in the morning, if patient is adequately decompressed, then we will proceed with small bowel follow-through Objective vital signs Vital Sign Date Time Temp Pulse Resp B/P (MAP) Pulse Ox O2 Delivery O2 Flow Rate FiO2 01/21/25 06:00 73 15 109/72 (84) 99 01/20/25 22:40 Nasal Cannula* 2 28 01/20/25 22:40 98.6 98.6 medications Current Medications Medications Dose Ordered Sig/Stan Route Start Time Stop Time Status Last Admin Dose Admin Acetaminophen/ Hydrocodone Bitart 1 tab Q4HP PRN PO 01/20/25 18:15 01/20/25 18:46 1 TAB Ondansetron HCl 4 mg Q4HP PRN IV 01/20/25 18:15 01/20/25 18:46 4 MG Enoxaparin Sodium 40 mg DAILY SC 01/21/25 10:00 Acetaminophen 650 mg Q6HP PRN PO 01/20/25 18:15 Pantoprazole Sodium 40 mg DAILY IV 01/21/25 10:00 Sodium Chloride 1,000 ml @ 120 mls/hr Q8H20M IV 01/21/25 10:45 Examination General examination- awake, alert, oriented HEENT- PEERLA, no acute nasal discharge Cardiovascular- S1-S2 audible, rate and rhythm regular, no murmur Respiratory- CTAB, no wheeze or rhonchi Gastrointestinal-abdominal wall scar present, mild abdominal wall tenderness+, bowel sound+. Musculoskeletal-no acute joint swelling or tenderness or redness Lower extremity- no leg edema Neurological- cranial nerves intact, no acute dysarthria or dysphagia Psychiatry- denies depression or SI or HI Skin- no acute rash or purpura laboratory and microbiology Laboratory Tests 01/21/25 06:25 Test 01/21/25 06:25 Range/Units Serum Glucose 116 H 74-106 mg/dL Problem List/Assessment/Plan Problem List/Assessment/Plan Assessment and plan # acute small-bowel obstruction # intractable abdominal pain and nausea and vomiting likely due to above -NPO -NG suction -continue IV fluid as prescribed -on ceftriaxone and metronidazole IV as prescribed - surgery consult-NPO with maintenance IV fluids. will re-evaluate in the morning, if patient is adequately decompressed, then we will proceed with small bowel follow-through -pending small bowel series # history of colon cancer, status post colectomy, on chemotherapy Goals of care, Code status full code; discussed with >15 minutes PUD prophylaxis: Pantoprazole DVT prophylaxis: Heparin Plan discussed with Dr. Hamilton , nursing staff, Total time spent on patient evaluation, chart review, assessment and plan, discussion discussion >35 minutes Plan discussed with: Patient, Spouse, Other (RN) My Orders My Orders Orders - SEFERINO SHABAZZ Procedure Category Date Status Time Sodium Chloride 0.9% PHA 01/21/25 In Process 10:45 SEFERINO SHABAZZ Jan 21, 2025 11:17
[2025-01-21] MEDS: SODIUM CHLORIDE 0.9% 1,000 ML IV ONE (12:28)
[2025-01-21] MEDS: PANTOPRAZOLE 40 MG/10 ML VIAL INJ IV SCH (12:37)
[2025-01-21] MEDS: HEPARIN SODIUM (PORCINE) 5000 UNITS/ML 1ML VIAL SC SCH (12:41)
--- NOTE | 2025-01-21 12:52 | DVH ---
EXAM: XY CHEST XRAY 1 VIEW Indication: NGT INSERTION Technique: Single frontal view of the chest was obtained Comparison: XY CHEST XRAY 1 VIEW on DOS: 10/04/24 FINDINGS: Lines and Tubes: Right chest port tip projects over superior vena cava. Enteric tube tip projects ov er the expected region stomach. Lungs: No focal consolidation. Pleura: No effusion. No pneumothorax. Cardiomediastinal contours: Unremarkable. Atherosclerotic vascular calcifications of the thoracic ao rta are noted. Bones: No acute osseous abnormality. IMPRESSION: Enteric tube tip projects over the expected region of the stomach.
--- NOTE | 2025-01-21 16:10 | DVHINCON2 ---
Consultation - Surgical Date Seen: Jan 21, 2025 Referring Physician Reason for Consultation Partial small bowel obstruction History of Present Illness History of Present Illness Mr. Howard is a 39-year-old male presented to the ED yesterday with complaints of abdominal pain, abdominal distention, nausea, vomiting. The symptoms started Sunday where he 1st started with lots of bloating, pain and ended up vomiting that night. Symptoms subsided a Sunday he was able to tolerate some diet but then again Sunday night he started vomiting and feeling distended. He decided to come to the ED yesterday. Patient has a active history of stage III colon cancer, he is status post right hemicolectomy. Currently getting treated at [facility] by Dr. Lizama (oncologist), his chemo regimen is every other week and he receives cetuximab and another immunologic medication. Last chemo was this past week. His last bowel movement was on Sunday, he usually goes 2-3 times per day, denies blood in the stool, passing some gas today. Past Medical/Surgical History Past Medical/Surgical History PMH colon cancer stage III PSH right hemicolectomy at [facility] Dr. Lizama (Oncologist), his chemo regimen is every other week with cetuximab and another immunologic medication. Family and Social History Family and Social History No family history of cancer ETOH past 3-4 beers daily drinker T Ob past occasional tobacco Drugs marijuana Allergies and medications Allergies: Coded Allergies: NO KNOWN ALLERGIES (Unverified , 04/05/19) Home Meds No Active Prescriptions or Reported Meds Review of systems Review of Systems: Deferred (See HPI) Examination Vital signs Vital Signs Date Time Temp Pulse Resp B/P (MAP) Pulse Ox O2 Delivery O2 Flow Rate FiO2 01/21/25 15:00 71 19 116/79 (91) 96 01/21/25 08:00 Room Air* 0 21 01/21/25 08:00 97.9 97.9 Medications Current Medications Medications (Trade) Dose Ordered Sig/Stan Route PRN Reason Start Time Stop Time Status Last Admin Sodium Chloride 1,000 ml @ 60 mls/hr [id number] IV 01/20/25 18:15 01/21/25 10:44 DC 01/20/25 18:15 Acetaminophen/ Hydrocodone Bitart ([place] 5/325MG Tab) 1 tab Q4HP PRN PO MODERATE PAIN (4-6 PAIN SCALE) 01/20/25 18:15 01/20/25 18:46 Ondansetron HCl (Zofran) 4 mg Q4HP PRN IV NAUSEA / VOMITING 01/20/25 18:15 01/20/25 18:46 Enoxaparin Sodium (Lovenox) 40 mg DAILY SC 01/21/25 10:00 01/21/25 12:11 DC Acetaminophen (Tylenol Tablet) 650 mg Q6HP PRN PO PAIN SCALE 1-3 OR TEMP>100.4 01/20/25 18:15 Pantoprazole Sodium (Protonix) 40 mg DAILY IV 01/21/25 10:00 01/21/25 12:37 Sodium Chloride 1,000 ml @ 120 mls/hr Q8H20M IV 01/21/25 10:45 Ceftriaxone Sodium 50 ml @ 100 mls/hr DAILY@09 IV 01/21/25 11:30 01/21/25 12:28 Metronidazole 100 ml @ 100 mls/hr Q8H IV 01/21/25 11:30 01/21/25 13:48 Heparin Sodium (Porcine) 5,000 units Q12HR SC 01/21/25 11:30 01/21/25 12:41 Laboratory Labs Test 01/21/25 06:25 01/20/25 23:50 01/20/25 15:40 01/20/25 15:04 Range/Units White Blood Count 3.8 #L 4.4-10.8 10^3/uL Red Blood Count 5.04 4.5-5.90 10^6/uL Hemoglobin 15.0 13.5-17.5 g/dL Hematocrit 42.0 41.0-53.0 % Mean Corpuscular Volume 83.4 80.0-100.0 fL Mean Corpuscular Hemoglobin 29.7 28.0-32.0 pg Mean Corpuscular Hemoglobin Concent 35.6 32.0-36.0 g/dL Red Cell Distribution Width 14.0 11.8-14.3 % Platelet Count 222 140-450 10^3/uL Mean Platelet Volume 6.7 L 6.9-10.8 fL Neutrophils (%) (Auto) 63.4 37.0-80.0 % Lymphocytes (%) (Auto) 20.0 10.0-50.0 % Monocytes (%) (Auto) 16.2 H 0.0-12.0 % Eosinophils (%) (Auto) 0.2 0.0-7.0 % Basophils (%) (Auto) 0.2 0.0-2.0 % Neutrophils # (Auto) 2.4 1.6-8.6 10 ^3/uL Lymphocytes # (Auto) 0.8 0.4-5.4 10 ^3/uL Monocytes # (Auto) 0.6 0-1.3 10 ^3/uL Eosinophils # (Auto) 0 0-0.8 10 ^3/uL Basophils # (Auto) 0 0-0.2 10 ^3/uL Nucleated Red Blood Cells 0.2 % Sodium Level 133 L 136-145 mmol/L Potassium Level 4.5 3.5-5.1 mmol/L Chloride Level 93 L 98-107 mmol/L Carbon Dioxide Level 30 20-31 mmol/L Anion Gap 10 5-15 Blood Urea Nitrogen 7 L 9-23 mg/dL Creatinine 0.75 0.700-1.30 mg/dL Glomerular Filtration Rate Calc 119 >90 mL/min BUN/Creatinine Ratio 9.3 L 10.0-20.0 Serum Glucose 116 H 74-106 mg/dL Hemoglobin A1c 5.7 <5.7 % A1C Calcium Level 9.7 8.7-10.4 mg/dL Total Bilirubin 0.7 0.2-1.0 mg/dL Aspartate Amino Transferase (AST) 26 13-40 U/L Alanine Aminotransferase (ALT) 46 H 7-40 U/L Alkaline Phosphatase 102 46-116 U/L Total Protein 6.6 5.7-8.2 g/dL Albumin 4.1 3.2-4.8 g/dL Vitamin B12 Level 578 211-911 pg/mL Vitamin D 25-Hydroxy 21.0 L 30.0-100 ng/mL Folic Acid 34.44 >5.38 ng/mL Thyroid Stimulating Hormone (TSH) 1.54 0.55-4.78 uIU/mL Urine Color Light-orange Yellow Urine Clarity Ex.turbid Clear Urine pH 7.0 5.0-9.0 Urine Specific [place] 1.022 1.001-1.035 Urine Protein Trace H Negative Urine Ketones 2+ H Negative Urine Blood Negative Negative /uL Urine Nitrite Negative Negative Urine Bilirubin Negative Negative Urine Urobilinogen 3 H Negative mg/dL Urine Leukocyte Esterase Negative Negative /uL Urine RBC None seen 0 - 3 /hpf Urine Microscopic WBC < 1 0-3 /HPF Urine Squamous Epithelial Cells None seen <5 /hpf Urine Amorphous Crystals Mod None Seen /hpf Urine Bacteria Few H None Seen /hpf Urine Mucus Few None Seen Urine Glucose Normal Normal mg/dL Urine Opiates Screen Neg NEGATIVE Urine Fentanyl Screen Neg NEGATIVE Urine Barbiturates Screen Neg NEGATIVE Urine Phencyclidine Screen Neg NEGATIVE Urine Amphetamines Screen Neg NEGATIVE Urine Benzodiazepines Screen Neg NEGATIVE Urine Cocaine Screen Neg NEGATIVE Urine Cannabinoids Screen Neg NEGATIVE Lipase 27 12-53 U/L Prothrombin Time 11.3 9.3-11.8 sec Prothrombin Time INR 1.07 0.9-1.15 Activated Partial Thromboplast Time 27.9 24.5-34.5 SEC Magnesium Level 1.8 1.6-2.6 mg/dL Examination: GENERAL:Normal, HEENT:Normal (No icterus, NG tube in place with minimal gastric content output in canister), ABDOMEN:Abnormal (Distended, midline scar well healed, nontender, no rebound, no guarding) Problem List/Assessment/Plan Problems: (1) SBO (small bowel obstruction) Assessment and Plan Mr. Howard is a 39-year-old male with a active diagnosis of stage III colon cancer, status post right hemicolectomy at [facility]. Patient is still getting treated with chemotherapy every other week. He presented yesterday with a partial small bowel obstruction. CT scan shows very dilated stomach and duodenum, also distended loops of small bowel. I can also see the staple line from the right colectomy. NG tube was not placed until this morning, so he was not adequately decompressed prior to getting a small bowel follow-through. Needless to say the small bowel follow-through failed, patient threw up all over the floor of the room. Patient with a further decompression before a small bowel follow-through was re-attempted, I asked the nursing staff to place a bigger NG tube, preferably a 18 Bangl[place]hi, as the 1 that he presently has a small caliber tube. 1. Please exchange the NG tube to a 18 Bangl[place]hi NG tube 2. NPO with maintenance IV fluids 3. We will re-evaluate in the morning, if patient is adequately decompressed, then we will proceed with small bowel follow-through Plan discussed with Plan discussed with: Patient, Spouse Visit Coding Surgery Date of Service if different f: Jan 21, 2025 Billing Provider: VIKI BRODERICK MD Surgery Visit Codes: 38927 - INP CONSULT <110 MIN VIKI BRODERICK MD Jan 21, 2025 16:10
[2025-01-21 16:30] VITALS: BP 106/75; PULSE 80; RESP 16; TEMP 98.1; O2SAT 97
[2025-01-21 16:57] VITALS: BP 109/84; PULSE 78; RESP 19; TEMP 99; O2SAT 96
[2025-01-21] MEDS: SODIUM CHLORIDE 0.9% 1,000 ML IV SCH (17:12)
[2025-01-21 20:00] VITALS: PULSE 78; RESP 16; O2SAT 95
[2025-01-21 21:00] VITALS: BP 113/81; PULSE 85; RESP 19; TEMP 99.6; O2SAT 95
[2025-01-22] VITALS (9 sets, daily range): BP systolic 113–120; BP diastolic 78–93; PULSE 75–87; RESP 14–17; TEMP 98.2–99.3; O2SAT 94–97
[2025-01-22 06:37] LABS: Alanine Aminotransferase 38 U/L (7-40); Albumin 4.0 g/dL (3.2-4.8); Alkaline Phosphatase 96 U/L (46-116); Anion Gap 11 (5-15); BUN/Creatinine Ratio 11.6 (10.0-20.0); Calcium 9.3 mg/dL (8.7-10.4); Carbon Dioxide 28 mmol/L (20-31); Glucose 99 mg/dL (74-106); Magnesium 2.1 mg/dL (1.6-2.6); Potassium 3.8 mmol/L (3.5-5.1); Sodium 137 mmol/L (136-145); Total Protein 6.5 g/dL (5.7-8.2)
[2025-01-22 06:38] LABS: Bilirubin, Total 0.5 mg/dL (0.2-1.0); Blood Urea Nitrogen 8 mg/dL (9-23); Chloride 98 mmol/L (98-107)
[2025-01-22 06:49] LABS: Hematocrit 41.5 % (41.0-53.0); Hemoglobin 14.7 g/dL (13.5-17.5); Mean Corpuscular Hemoglobin 29.4 pg (28.0-32.0); Mean Corpuscular Volume 82.8 fL (80.0-100.0); Nucleated Red Blood Cells % 0.1 %
[2025-01-22] MEDS ORDERED: GASTROGRAFIN 120 ML SOL ONE (09:54)
--- NOTE | 2025-01-22 11:45 | DVH ---
Procedure: XY SMALL BOWEL SERIES-W GASTROGRA Reason for study/Clinical History: PARTIAL SBO Comparison Study: XY SMALL BOWEL SERIES-W GASTROGRA on DOS: 10/06/24 Technique: Single contrast small bowel series performed. FINDINGS/IMPRESSION: Initial automated teller manager view of the abdomen and pelvis appears demonstrates no acute process. Contrast is identified within the colon by 30 minutes. This represents a normal small bowel transit time.
--- NOTE | 2025-01-22 12:25 | DVHPN2 ---
Progress Note - Surgical Date Seen: Jan 22, 2025 Post op day Post op day: 0 Subjective Patient reports: Feels better (Patient feels much better today, NG tube output was 1.6 L after increasing the size of the tube, patient reports 1 liquid bowel movement, he is not nauseous or vomiting anymore.) Review of Systems: Deferred Objective Vital signs Vital Sign Date Time Temp Pulse Resp B/P (MAP) Pulse Ox O2 Delivery O2 Flow Rate FiO2 01/22/25 08:41 98.3 87 14 113/78 (90) 97 98.3 01/21/25 20:00 Room Air* 0 21 Total Intake and Output 01/21/25 01/21/25 01/22/25 15:00 23:00 07:00 Intake Total 1050 ml 100 ml 0 ml Output Total 1300 ml 850 ml Balance -250 ml 100 ml -850 ml Medications Current Medications Medications Dose Ordered Sig/Stan Route Start Time Stop Time Status Last Admin Dose Admin Acetaminophen/ Hydrocodone Bitart 1 tab Q4HP PRN PO 01/20/25 18:15 01/20/25 18:46 1 TAB Ondansetron HCl 4 mg Q4HP PRN IV 01/20/25 18:15 01/20/25 18:46 4 MG Acetaminophen 650 mg Q6HP PRN PO 01/20/25 18:15 Pantoprazole Sodium 40 mg DAILY IV 01/21/25 10:00 01/22/25 09:20 40 MG Sodium Chloride 1,000 ml @ 120 mls/hr Q8H20M IV 01/21/25 10:45 01/22/25 12:14 120 MLS/HR Ceftriaxone Sodium 50 ml @ 100 mls/hr DAILY@09 IV 01/21/25 11:30 01/22/25 09:20 100 MLS/HR Metronidazole 100 ml @ 100 mls/hr Q8H IV 01/21/25 11:30 01/22/25 11:30 100 MLS/HR Heparin Sodium (Porcine) 5,000 units Q12HR SC 01/21/25 11:30 01/22/25 09:21 5,000 UNITS Laboratory Laboratory Tests 01/22/25 04:48 Test 01/22/25 04:48 Range/Units Serum Glucose 99 74-106 mg/dL Examination: ABDOMEN:Normal (Nondistended, midline scar well healed, soft, depressible, nontender) Labs and/or images reviewed: Labs reviewed by me (Unremarkable) Problem List/Assessment/Plan Assessment and Plan Mr. Howard is a 39-year-old male who presented yesterday with a partial small bowel obstruction he has a active history of stage III colon cancer and is status post right hemicolectomy, this was done at [facility]. Patient was not adequately decompressed before the 1st small bowel follow-through, which she failed and ended up throwing up. The NG tube was adjusted to a bigger size Bulgarian and after the adjustment it put out 1.6 L. Today he feels much better and reports Bear liquid bowel movement. Offered small bowel follow-through versus going straight to diet, patient wants to do the small bowel follow- through 1st. 1. Small bowel follow-through ordered 2. If small bowel follow-through passes, start a clear liquid diet 3. Out of bed and ambulate My Orders My Orders Orders - VIKI BRODERICK MD Procedure Category Date Status Time Small Bowel Series-W XY 01/22/25 Resulted Gastrogra 09:46 Clear Liq Diet DIET 01/22/25 Transmitted Lunch Plan discussed with Plan discussed with: Patient, Spouse Visit Coding Surgery Date of Service if different f: Jan 22, 2025 Billing Provider: VIKI BRODERICK MD Surgery Visit Codes: [id number] INP/OBS CARE(HIGH) VIKI BRODERICK MD Jan 22, 2025 12:25
--- NOTE | 2025-01-22 17:45 | DVHPNRES ---
Progress Note Date Seen: Jan 22, 2025 Resident Creating Document: SEFERINO SHABAZZ RESIDENT Medical Necessity Reason Pt with a Central, PICC or Fol: No Subjective Review of Systems Jose Luis Howard Zak Alfredo 39 years old male with a PMH of colon cancer status post resection and currently receiving chemotherapy presented to the ED with the chief complaints of abdominal pain for the last 3 days. Patient received his most recent chemotherapy treatment last Sunday, he was initially fine but on Sunday he began experiencing increasing abdominal pain associated with the bloating that come and goes every 5-7 minutes. Associated symptoms include nausea and vomiting. He is able to pass the gas on his last bowel movement was yesterday. He denies diarrhea, fever, sick contacts, recent travel and other associated symptoms at this time. Three months back patient presented with same symptoms, diagnosed as partial bowel obstruction and again presented with the same complaints. Urinalysis negative for UTI, UDS negative. CT abdomen and pelvis [id number] and distended stomach as well as jejunum. Findings suggest small bowel obstruction. X-ray KUB- Dilated loops of small bowel are seen measuring up to 6.2 cm. Enteric tube tip projects over the expected region of the stomach. PMH: Colon cancer currently on chemotherapy PSH: Right-sided colon resection Family history: Noncontributory, no history of cancer in family according to the patient Social history: Lives at home. Denies smoking, alcohol and other drug abuse. 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 Patient reported pain has improved. Patient has a bowel movement today morning. Small bowel series revealed no acute intestinal obstruction. Clear liquid diet. Out of bed and ambulate.. Possible discharge tomorrow Objective vital signs Vital Sign Date Time Temp Pulse Resp B/P (MAP) Pulse Ox O2 Delivery O2 Flow Rate FiO2 01/22/25 16:44 98.3 83 16 120/79 (93) 97 98.3 01/22/25 08:00 Room Air* 0 21 Total Intake and Output 01/21/25 01/21/25 01/22/25 15:00 23:00 07:00 Intake Total 1050 ml 100 ml 0 ml Output Total 1300 ml 850 ml Balance -250 ml 100 ml -850 ml medications Current Medications Medications Dose Ordered Sig/Stan Route Start Time Stop Time Status Last Admin Dose Admin Acetaminophen/ Hydrocodone Bitart 1 tab Q4HP PRN PO 01/20/25 18:15 01/20/25 18:46 1 TAB Ondansetron HCl 4 mg Q4HP PRN IV 01/20/25 18:15 01/22/25 17:18 4 MG Acetaminophen 650 mg Q6HP PRN PO 01/20/25 18:15 Pantoprazole Sodium 40 mg DAILY IV 01/21/25 10:00 01/22/25 09:20 40 MG Sodium Chloride 1,000 ml @ 120 mls/hr Q8H20M IV 01/21/25 10:45 01/22/25 12:14 120 MLS/HR Ceftriaxone Sodium 50 ml @ 100 mls/hr DAILY@09 IV 01/21/25 11:30 01/22/25 09:20 100 MLS/HR Metronidazole 100 ml @ 100 mls/hr Q8H IV 01/21/25 11:30 01/22/25 11:30 100 MLS/HR Heparin Sodium (Porcine) 5,000 units Q12HR SC 01/21/25 11:30 01/22/25 09:21 5,000 UNITS Examination General examination- awake, alert, oriented HEENT- PEERLA, no acute nasal discharge Cardiovascular- S1-S2 audible, rate and rhythm regular, no murmur Respiratory- CTAB, no wheeze or rhonchi Gastrointestinal-abdominal wall scar present, bowel sound+. Musculoskeletal-no acute joint swelling or tenderness or redness Lower extremity- no leg edema Neurological- cranial nerves intact, no acute dysarthria or dysphagia Psychiatry- denies depression or SI or HI Skin- no acute rash or purpura laboratory and microbiology Laboratory Tests 01/22/25 04:48 Test 01/22/25 04:48 Range/Units Serum Glucose 99 74-106 mg/dL Problem List/Assessment/Plan Problem List/Assessment/Plan Assessment and plan # acute small-bowel obstruction # intractable abdominal pain and nausea and vomiting likely due to above --clear liquid diet -continue IV fluid as prescribed -on ceftriaxone and metronidazole IV as prescribed --small-bowel follow-through no acute obstruction # history of colon cancer, status post colectomy, on chemotherapy -please follow up with your oncologist as per schedule Goals of care, Code status full code; discussed with >15 minutes PUD prophylaxis: Pantoprazole DVT prophylaxis: Heparin Plan discussed with Dr. Hamilton , nursing staff, Total time spent on patient evaluation, chart review, assessment and plan, discussion discussion >35 minutes Plan discussed with: Patient, Other (RN) SEFERINO SHABAZZ RESIDENT Jan 22, 2025 17:45
[2025-01-23] VITALS (8 sets, daily range): BP systolic 110–124; BP diastolic 82–92; PULSE 72–86; RESP 16–20; TEMP 96.8–99.1; O2SAT 94–99
[2025-01-23 07:20] LABS: Potassium 3.7 mmol/L (3.5-5.1); Sodium 137 mmol/L (136-145)
[2025-01-23 07:21] LABS: Anion Gap 13 (5-15); Carbon Dioxide 26 mmol/L (20-31)
[2025-01-23 07:26] LABS: BUN/Creatinine Ratio 15.1 (10.0-20.0); Calcium 8.7 mg/dL (8.7-10.4); Chloride 98 mmol/L (98-107); Glucose 85 mg/dL (74-106)
[2025-01-23 07:27] LABS: Magnesium 2.1 mg/dL (1.6-2.6)
[2025-01-23 07:29] LABS: Blood Urea Nitrogen 8 mg/dL (9-23)
[2025-01-23] MEDS ORDERED: PANT40T PO (10:01)
[2025-01-23] MEDS ORDERED: AMOX500T86 PO (10:02)
--- NOTE | 2025-01-23 10:02 | DVHPN2 ---
Progress Note - Surgical Date Seen: Jan 23, 2025 Post op day Post op day: 0 Subjective Patient reports: Feels better (Patient is feeling better, not distended, although he complained about an emesis episode that he had last night, states that last night he had some of the clear liquids and after be history of feeling a little bloated and nauseous.) Review of Systems: Deferred Objective Vital signs Vital Sign Date Time Temp Pulse Resp B/P (MAP) Pulse Ox O2 Delivery O2 Flow Rate FiO2 01/23/25 09:00 97.8 80 20 120/85 (97) 95 97.8 01/23/25 08:11 Room Air* 0 21 Total Intake and Output 01/22/25 01/22/25 01/23/25 15:00 23:00 07:00 Intake Total 150 ml 2640 ml 200 ml Balance 150 ml 2640 ml 200 ml Medications Current Medications Medications Dose Ordered Sig/Stan Route Start Time Stop Time Status Last Admin Dose Admin Acetaminophen/ Hydrocodone Bitart 1 tab Q4HP PRN PO 01/20/25 18:15 01/23/25 03:35 1 TAB Ondansetron HCl 4 mg Q4HP PRN IV 01/20/25 18:15 01/23/25 03:35 4 MG Acetaminophen 650 mg Q6HP PRN PO 01/20/25 18:15 Pantoprazole Sodium 40 mg DAILY IV 01/21/25 10:00 01/23/25 09:54 40 MG Sodium Chloride 1,000 ml @ 120 mls/hr Q8H20M IV 01/21/25 10:45 01/22/25 22:48 120 MLS/HR Ceftriaxone Sodium 50 ml @ 100 mls/hr DAILY@09 IV 01/21/25 11:30 01/23/25 09:55 100 MLS/HR Metronidazole 100 ml @ 100 mls/hr Q8H IV 01/21/25 11:30 01/23/25 03:35 100 MLS/HR Heparin Sodium (Porcine) 5,000 units Q12HR SC 01/21/25 11:30 01/23/25 09:52 5,000 UNITS Laboratory Laboratory Tests 01/23/25 01:45 01/22/25 04:48 Test 01/23/25 01:45 Range/Units Serum Glucose 85 74-106 mg/dL Examination: GENERAL:Normal, HEENT:Abnormal (NG tube in placed, clamped), ABDOMEN:Normal (Nondistended, midline scar well healed, soft, depressible, nontender) Labs and/or images reviewed: Labs reviewed by me (Within normal), Image(s) reviewed by me (Normal small bowel follow-through with contrast reaching the colon in 30 minutes) Problem List/Assessment/Plan Assessment and Plan Mr. Howard is a 39-year-old male who presented on 01/21 with a partial small bowel obstruction he has a active history of stage III colon cancer and is status post right hemicolectomy, this was done at [facility]. Patient was not adequately decompressed before the 1st small bowel follow-through, which she failed and ended up throwing up. Patient is to was upsized and then he was successfully decompressed overnight. Yesterday morning patient had already had a bowel movement, but we proceeded any ways with the small bowel follow-through. Small bowel follow-through shows normal transit time of contrast into the colon, reaching it in 30 minutes. Patient had 9 bowel movements yesterday. But he did had a emesis episode at night. This morning I placed the NG tube to suction and only 150 mL of gastric contents came out. Patient is okay to continue with diet. And advance as tolerated 1. Clear liquid diet in the morning, mechanical soft diet starting at noon if patient tolerates a clear liquid diet 2. If patient is gets nauseous and feels like he is going to vomit, placed NG tube back to low intermittent suction 3. Out of bed and ambulate My Orders My Orders Orders - VIKI BRODERICK MD Procedure Category Date Status Time Mechanical Soft Diet DIET 01/23/25 Transmitted Breakfast Plan discussed with Plan discussed with: Patient, Other (Mother) Visit Coding Surgery Date of Service if different f: Jan 23, 2025 Billing Provider: VIKI BRODERICK MD Surgery Visit Codes: [id number] INP/OBS CARE(HIGH) VIKI BRODERICK MD Jan 23, 2025 10:02
--- NOTE | 2025-01-23 11:59 | DVHPNRES ---
Progress Note Date Seen: Jan 23, 2025 Resident Creating Document: SEFERINO SHABAZZ RESIDENT Medical Necessity Reason Pt with a Central, PICC or Fol: No Subjective Review of Systems Lee Jose Luis Zak Alfredo 39 years old male with a PMH of colon cancer status post resection and currently receiving chemotherapy presented to the ED with the chief complaints of abdominal pain for the last 3 days. Patient received his most recent chemotherapy treatment last Sunday, he was initially fine but on Sunday he began experiencing increasing abdominal pain associated with the bloating that come and goes every 5-7 minutes. Associated symptoms include nausea and vomiting. He is able to pass the gas on his last bowel movement was yesterday. He denies diarrhea, fever, sick contacts, recent travel and other associated symptoms at this time. Three months back patient presented with same symptoms, diagnosed as partial bowel obstruction and again presented with the same complaints. Urinalysis negative for UTI, UDS negative. CT abdomen and pelvis [id number] and distended stomach as well as jejunum. Findings suggest small bowel obstruction. X-ray KUB- Dilated loops of small bowel are seen measuring up to 6.2 cm. Enteric tube tip projects over the expected region of the stomach. PMH: Colon cancer currently on chemotherapy PSH: Right-sided colon resection Family history: Noncontributory, no history of cancer in family according to the patient Social history: Lives at home. Denies smoking, alcohol and other drug abuse. 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 Patient reported pain has improved. Patient has a bowel movement today morning. Advance diet to mechanical soft diet at noon. Surgery recommendation reviewed and appreciated. Objective vital signs Vital Sign Date Time Temp Pulse Resp B/P (MAP) Pulse Ox O2 Delivery O2 Flow Rate FiO2 01/23/25 09:00 97.8 80 20 120/85 (97) 95 97.8 01/23/25 08:11 Room Air* 0 21 Total Intake and Output 01/22/25 01/22/25 01/23/25 15:00 23:00 07:00 Intake Total 150 ml 2640 ml 200 ml Balance 150 ml 2640 ml 200 ml medications Current Medications Medications Dose Ordered Sig/Stan Route Start Time Stop Time Status Last Admin Dose Admin Acetaminophen/ Hydrocodone Bitart 1 tab Q4HP PRN PO 01/20/25 18:15 01/23/25 03:35 1 TAB Ondansetron HCl 4 mg Q4HP PRN IV 01/20/25 18:15 01/23/25 03:35 4 MG Acetaminophen 650 mg Q6HP PRN PO 01/20/25 18:15 Pantoprazole Sodium 40 mg DAILY IV 01/21/25 10:00 01/23/25 09:54 40 MG Sodium Chloride 1,000 ml @ 120 mls/hr Q8H20M IV 01/21/25 10:45 01/22/25 22:48 120 MLS/HR Ceftriaxone Sodium 50 ml @ 100 mls/hr DAILY@09 IV 01/21/25 11:30 01/23/25 09:55 100 MLS/HR Metronidazole 100 ml @ 100 mls/hr Q8H IV 01/21/25 11:30 01/23/25 03:35 100 MLS/HR Heparin Sodium (Porcine) 5,000 units Q12HR SC 01/21/25 11:30 01/23/25 09:52 5,000 UNITS Examination General examination- awake, alert, oriented HEENT- PEERLA, no acute nasal discharge Cardiovascular- S1-S2 audible, rate and rhythm regular, no murmur Respiratory- CTAB, no wheeze or rhonchi Gastrointestinal-abdominal wall scar present, bowel sound+. Musculoskeletal-no acute joint swelling or tenderness or redness Lower extremity- no leg edema Neurological- cranial nerves intact, no acute dysarthria or dysphagia Psychiatry- denies depression or SI or HI Skin- no acute rash or purpura laboratory and microbiology Laboratory Tests 01/23/25 01:45 01/22/25 04:48 Test 01/23/25 01:45 Range/Units Serum Glucose 85 74-106 mg/dL Problem List/Assessment/Plan Problem List/Assessment/Plan Assessment and plan # acute small-bowel obstruction # intractable abdominal pain and nausea and vomiting likely due to above --mechanical soft diet -continue IV fluid as prescribed -on ceftriaxone and metronidazole IV as prescribed --small-bowel follow-through no acute obstruction -surgery recommendation reviewed and appreciated-If patient is gets nauseous and feels like he is going to vomit, placed NG tube back to low intermittent suction # history of colon cancer, status post colectomy, on chemotherapy -please follow up with your oncologist as per schedule Goals of care, Code status full code; discussed with >15 minutes PUD prophylaxis: Pantoprazole DVT prophylaxis: Heparin Plan discussed with Dr. Hamilton , nursing staff, Total time spent on patient evaluation, chart review, assessment and plan, discussion discussion >35 minutes Plan discussed with: Patient, Spouse, Other (RN) SEFERINO SHABAZZ RESIDENT Jan 23, 2025 11:59
[2025-01-24 00:56] VITALS: BP 113/79; PULSE 79; RESP 18; TEMP 98.8; O2SAT 93
[2025-01-24 05:00] VITALS: BP 120/83; PULSE 86; RESP 17; TEMP 98.4; O2SAT 96
[2025-01-24 06:11] LABS: Anion Gap 14 (5-15); Carbon Dioxide 25 mmol/L (20-31); Chloride 98 mmol/L (98-107); Sodium 137 mmol/L (136-145)
[2025-01-24 06:12] LABS: Calcium 8.8 mg/dL (8.7-10.4)
[2025-01-24 06:17] LABS: BUN/Creatinine Ratio 12.3 (10.0-20.0); Glucose 78 mg/dL (74-106)
[2025-01-24 06:25] LABS: Blood Urea Nitrogen 7 mg/dL (9-23); Potassium 2.9 mmol/L (3.5-5.1)
[2025-01-24 08:44] VITALS: BP 105/80; PULSE 98; RESP 21; TEMP 99.3; O2SAT 94
[2025-01-24] MEDS: POTASSIUM CHL 20MEQ/100ML 100 ML IV ONE (08:57)
--- NOTE | 2025-01-24 09:50 | DVH ---
CHEST RADIOGRAPH Indication: CONFIRM NG TUBE PLACEMENT Technique: Single frontal view of the chest was obtained COMPARISON: XY CHEST XRAY 1 VIEW on DOS: 01/21/25, XY CHEST XRAY 1 VIEW on DOS: 10/04/24 FINDINGS: Lines and Tubes: Right chest port and enteric catheter in satisfactory position. Lungs: Clear Pleura: No effusion. No pneumothorax. Cardiomediastinal contours: Unremarkable Bones: Unremarkable IMPRESSION: Enteric catheter in satisfactory position.
[2025-01-24 12:33] VITALS: BP 115/80; PULSE 74; RESP 18; TEMP 98.2; O2SAT 99
[2025-01-24] MEDS: POTASSIUM EFFERVESENT TAB 25 MEQ PO ONE (12:58)
--- NOTE | 2025-01-24 14:32 | DVHPNRES ---
Progress Note Date Seen: Jan 24, 2025 Resident Creating Document: DEBORAH ORTIZ RESIDENT Medical Necessity Reason Pt with a Central, PICC or Fol: No Subjective Review of Systems Jose Luis Howard 39 years old male with a PMH of colon cancer status post resection and currently receiving chemotherapy presented to the ED with the chief complaints of abdominal pain for the last 3 days. Patient received his most recent chemotherapy treatment last Sunday, he was initially fine but on Sunday he began experiencing increasing abdominal pain associated with the bloating that come and goes every 5-7 minutes. Associated symptoms include nausea and vomiting. He is able to pass the gas on his last bowel movement was yesterday. He denies diarrhea, fever, sick contacts, recent travel and other associated symptoms at this time. Three months back patient presented with same symptoms, diagnosed as partial bowel obstruction and again presented with the same complaints. Urinalysis negative for UTI, UDS negative. CT abdomen and pelvis [id number]-Dqaha-seicqi and distended stomach as well as jejunum. Findings suggest small bowel obstruction. X-ray KUB- Dilated loops of small bowel are seen measuring up to 6.2 cm. Enteric tube tip projects over the expected region of the stomach. PMH: Colon cancer currently on chemotherapy PSH: Right-sided colon resection Family history: Noncontributory, no history of cancer in family according to the patient Social history: Lives at home. Denies smoking, alcohol and other drug abuse. Patient reported he is ex alcohol user Allergies: No known allergies 01/21-Patient was seen today at bedside, labs and chart reviewed. Patient reported pain is improving. . CT abdomen and pelvis [id number] and distended stomach as well as jejunum. Findings suggest small bowel obstruction. Appreciate surgery consult, surgery recommended- exchange the NG tube to a 18 Welsh NG tube. NPO with maintenance IV fluids. will re-evaluate in the morning, if patient is adequately decompressed, then we will proceed with small bowel follow-through 01/22-Patient was seen today at bedside, labs and chart reviewed. Patient reported pain has improved. Patient has a bowel movement today morning. Small bowel series revealed no acute intestinal obstruction. Clear liquid diet. Out of bed and ambulate.. Possible discharge tomorrow 01/23-Patient was seen today at bedside, labs and chart reviewed. Patient reported pain has improved. Patient has a bowel movement today morning. Advance diet to mechanical soft diet at noon. Surgery recommendation reviewed and appreciated. 01/24- the patient was seen at bedside today. His potassium today was 2.9 which was repleted. The patient complained of nausea last night and this morning, so he was started back on intermittent suction of NG tube and diet change to clear liquid diet. Peer to peer communication was done with his oncologist at [facility], who recommended starting him on TPN. Objective vital signs Vital Sign Date Time Temp Pulse Resp B/P (MAP) Pulse Ox O2 Delivery O2 Flow Rate FiO2 01/24/25 12:33 98.2 74 18 115/80 (92) 99 98.2 01/23/25 20:00 Room Air* 0 21 Total Intake and Output 01/23/25 01/23/25 01/24/25 15:00 23:00 07:00 Intake Total 150 ml 2240 ml 1500 ml Output Total 850 ml Balance 150 ml 2240 ml 650 ml medications Current Medications Medications Dose Ordered Sig/Stan Route Start Time Stop Time Status Last Admin Dose Admin Acetaminophen/ Hydrocodone Bitart 1 tab Q4HP PRN PO 01/20/25 18:15 01/23/25 03:35 1 TAB Ondansetron HCl 4 mg Q4HP PRN IV 01/20/25 18:15 01/23/25 03:35 4 MG Acetaminophen 650 mg Q6HP PRN PO 01/20/25 18:15 Pantoprazole Sodium 40 mg DAILY IV 01/21/25 10:00 01/24/25 08:59 40 MG Sodium Chloride 1,000 ml @ 120 mls/hr Q8H20M IV 01/21/25 10:45 01/24/25 08:56 120 MLS/HR Ceftriaxone Sodium 50 ml @ 100 mls/hr DAILY@09 IV 01/21/25 11:30 01/24/25 09:04 100 MLS/HR Metronidazole 100 ml @ 100 mls/hr Q8H IV 01/21/25 11:30 01/24/25 12:51 100 MLS/HR Heparin Sodium (Porcine) 5,000 units Q12HR SC 01/21/25 11:30 01/24/25 09:05 5,000 UNITS Potassium Chloride 100 ml @ 50 mls/hr Q2H IV 01/24/25 13:15 01/24/25 17:14 Examination General examination- awake, alert, oriented HEENT- PEERLA, no acute nasal discharge Cardiovascular- S1-S2 audible, rate and rhythm regular, no murmur Respiratory- CTAB, no wheeze or rhonchi Gastrointestinal-abdominal wall scar present, bowel sound+. Musculoskeletal-no acute joint swelling or tenderness or redness Lower extremity- no leg edema Neurological- cranial nerves intact, no acute dysarthria or dysphagia Psychiatry- denies depression or SI or HI Skin- no acute rash or purpura laboratory and microbiology Laboratory Tests 01/24/25 12:02 01/24/25 04:36 01/22/25 04:48 Test 01/24/25 04:36 Range/Units Serum Glucose 78 74-106 mg/dL Labs and/or images reviewed: Labs reviewed by me, Image(s) reviewed by me Problem List/Assessment/Plan Problem List/Assessment/Plan # acute small-bowel obstruction # intractable abdominal pain and nausea and vomiting likely due to above -clear liquid diet -continue IV fluid as prescribed -on ceftriaxone and metronidazole IV as prescribed -start TPN -small-bowel follow-through no acute obstruction -surgery recommendation reviewed and appreciated-If patient gets nauseous and feels like he is going to vomit, placed NG tube back to low intermittent suction # history of colon cancer,diffuse peritoneal carcinomatosis,status post colectomy, on chemotherapy -please follow up with your oncologist as per schedule Goals of care, Code status full code; discussed with >18 minutes PUD prophylaxis: Pantoprazole DVT prophylaxis: Heparin Plan discussed with Dr. Hamilton , nursing staff, Total time spent on patient evaluation, chart review, assessment and plan, discussion discussion >35 minutes Plan discussed with: Patient My Orders My Orders Orders - DEBORAH ORTIZ RESIDENT Procedure Category Date Status Time Clear Liq Diet DIET 01/24/25 Transmitted Lunch DEBORAH ORTIZ RESIDENT Jan 24, 2025 14:32
[2025-01-24] MEDS: POTASSIUM CHL 20MEQ/100ML 100 ML IV SCH (15:42)
[2025-01-24 16:33] VITALS: BP 122/83; PULSE 74; RESP 17; TEMP 98.7; O2SAT 96
--- NOTE | 2025-01-24 17:06 | DVHPN2 ---
Progress Note - Surgical Date Seen: Jan 24, 2025 Post op day Post op day: 0 Subjective Patient reports: Feels better (Patient had an emesis episode last night, NG tube was placed to suction approximately 607 100 mL of bilious drainage came out. This morning patient is feeling well had a bowel movement and is feeling hungry.) Review of Systems: Deferred Objective Vital signs Vital Sign Date Time Temp Pulse Resp B/P (MAP) Pulse Ox O2 Delivery O2 Flow Rate FiO2 01/24/25 16:33 98.7 74 17 122/83 (96) 96 98.7 01/24/25 08:00 Room Air* 0 21 Total Intake and Output 01/23/25 01/23/25 01/24/25 15:00 23:00 07:00 Intake Total 150 ml 2240 ml 1500 ml Output Total 850 ml Balance 150 ml 2240 ml 650 ml Medications Current Medications Medications Dose Ordered Sig/Stan Route Start Time Stop Time Status Last Admin Dose Admin Acetaminophen/ Hydrocodone Bitart 1 tab Q4HP PRN PO 01/20/25 18:15 01/23/25 03:35 1 TAB Ondansetron HCl 4 mg Q4HP PRN IV 01/20/25 18:15 01/23/25 03:35 4 MG Acetaminophen 650 mg Q6HP PRN PO 01/20/25 18:15 Pantoprazole Sodium 40 mg DAILY IV 01/21/25 10:00 01/24/25 08:59 40 MG Sodium Chloride 1,000 ml @ 120 mls/hr Q8H20M IV 01/21/25 10:45 01/24/25 08:56 120 MLS/HR Ceftriaxone Sodium 50 ml @ 100 mls/hr DAILY@09 IV 01/21/25 11:30 01/24/25 09:04 100 MLS/HR Metronidazole 100 ml @ 100 mls/hr Q8H IV 01/21/25 11:30 01/24/25 12:51 100 MLS/HR Heparin Sodium (Porcine) 5,000 units Q12HR SC 01/21/25 11:30 01/24/25 09:05 5,000 UNITS Potassium Chloride 100 ml @ 50 mls/hr Q2H IV 01/24/25 13:15 01/24/25 17:14 01/24/25 15:42 50 MLS/HR Laboratory Laboratory Tests 01/24/25 12:02 01/24/25 04:36 01/22/25 04:48 Test 01/24/25 04:36 Range/Units Serum Glucose 78 74-106 mg/dL Examination: GENERAL:Normal, ABDOMEN:Normal (Nondistended, midline scar well healed, soft, depressible, nontender) Problem List/Assessment/Plan Assessment and Plan Mr. Howard is a 39-year-old male who presented on 01/21 with a partial small bowel obstruction he has a active history of stage III colon cancer and is status post right hemicolectomy, this was done at [facility]. Patient had a setback last night with a emesis episode and NG tube was placed back to suction approximately 600-700 mL of bilious fluid came out. Patient is feeling well this morning he had a bowel movement. At bedside I placed the NG tube back to regular suctioned and immediately 400 mL of bilious fluid came out. I discussed the possibility of restarting a clear liquid diet for the whole day today versus NPO and NG tube to a LIS for 24 more hours. We will proceed with a NPO and NG tube to LIS. We will reassess tomorrow 1. NPO except meds with the NG tube to LIS 2. We will re-evaluate tomorrow 3. Out of bed and ambulate Plan discussed with Plan discussed with: Spouse Visit Coding Surgery Date of Service if different f: Jan 24, 2025 Billing Provider: VIKI BRODERICK MD Surgery Visit Codes: [id number] INP/OBS CARE(HIGH) VKII BRODERICK MD Jan 24, 2025 17:06
[2025-01-24] MEDS ORDERED: TPN PER PHARMACY 0 ML IV SCH (18:00)
[2025-01-24] MEDS ORDERED: DEXTROSE (50%) 50ML SYRG IV SCH (18:15)
[2025-01-24 21:00] VITALS: BP 111/80; PULSE 82; RESP 17; TEMP 98.4; O2SAT 96
[2025-01-24] MEDS: AMINO ACID INFUSION IN D10W 1,000 ML IV SCH (22:35)
[2025-01-24] MEDS: InsuLIN REG 1unit/0.01ml Soln (100units/ml) SC SCH (23:25)
[2025-01-24] MEDS: ACCU-CHEK COMFORT CURVE STRIP VI SCH (23:25)
[2025-01-25 01:01] VITALS: BP 114/72; PULSE 73; RESP 17; TEMP 98.3; O2SAT 94
[2025-01-25 05:00] VITALS: BP 116/72; PULSE 70; RESP 18; TEMP 97.8; O2SAT 98
[2025-01-25 05:55] LABS: Hematocrit 38.4 % (41.0-53.0); Hemoglobin 13.8 g/dL (13.5-17.5); Mean Corpuscular Hemoglobin 30.0 pg (28.0-32.0); Mean Corpuscular Volume 83.3 fL (80.0-100.0); Nucleated Red Blood Cells % 0.1 %
[2025-01-25 05:59] LABS: Anion Gap 10 (5-15); Carbon Dioxide 25 mmol/L (20-31); Chloride 101 mmol/L (98-107)
[2025-01-25 06:05] LABS: Glucose 105 mg/dL (74-106)
[2025-01-25 06:08] LABS: BUN/Creatinine Ratio 9.4 (10.0-20.0); Blood Urea Nitrogen < 5 mg/dL (9-23); Calcium 8.4 mg/dL (8.7-10.4); Potassium 3.0 mmol/L (3.5-5.1); Sodium 136 mmol/L (136-145)
[2025-01-25 09:00] VITALS: BP 109/73; PULSE 71; RESP 17; TEMP 98.5; O2SAT 97
--- NOTE | 2025-01-25 10:24 | DVHPN2 ---
Progress Note - Surgical Date Seen: Jan 25, 2025 Post op day Post op day: 0 Subjective Patient reports: Feels better (Patient is feels much better, nondistended, had 2 bowel movements) Review of Systems: Deferred Objective Vital signs Vital Sign Date Time Temp Pulse Resp B/P (MAP) Pulse Ox O2 Delivery O2 Flow Rate FiO2 01/25/25 05:00 97.8 70 18 116/72 (87) 98 97.8 01/24/25 20:00 Room Air* 0 21 Total Intake and Output 01/24/25 01/24/25 01/25/25 15:00 23:00 07:00 Intake Total 150 ml 700 ml 1348 ml Output Total 900 ml 1100 ml 401 ml Balance -750 ml -400 ml 947 ml Medications Current Medications Medications Dose Ordered Sig/Stan Route Start Time Stop Time Status Last Admin Dose Admin Acetaminophen/ Hydrocodone Bitart 1 tab Q4HP PRN PO 01/20/25 18:15 01/23/25 03:35 1 TAB Ondansetron HCl 4 mg Q4HP PRN IV 01/20/25 18:15 01/23/25 03:35 4 MG Acetaminophen 650 mg Q6HP PRN PO 01/20/25 18:15 Pantoprazole Sodium 40 mg DAILY IV 01/21/25 10:00 01/24/25 08:59 40 MG Sodium Chloride 1,000 ml @ 120 mls/hr Q8H20M IV 01/21/25 10:45 01/25/25 00:04 120 MLS/HR Ceftriaxone Sodium 50 ml @ 100 mls/hr DAILY@09 IV 01/21/25 11:30 01/24/25 09:04 100 MLS/HR Metronidazole 100 ml @ 100 mls/hr Q8H IV 01/21/25 11:30 01/25/25 03:32 100 MLS/HR Heparin Sodium (Porcine) 5,000 units Q12HR SC 01/21/25 11:30 01/24/25 22:47 5,000 UNITS Amino Acids 0 ml @ 0 mls/hr PER PHARMACY IV 01/24/25 18:00 Amino Acids/ Electrolytes/ Dextrose 1,000 ml @ 41 mls/hr DAILY@2200 IV 01/24/25 22:00 01/25/25 21:59 01/24/25 22:35 41 MLS/HR Diagnostic Test (Pha) 1 strip Q6HR 01/25/25 00:00 01/25/25 05:40 1 STRIP Insulin Human Regular FOLLOW SLIDING SCALE Q6HR SC 01/25/25 00:00 Dextrose 50 ml UD IV 01/24/25 18:15 Potassium Chloride 100 ml @ 50 mls/hr Q2H IV 01/25/25 09:45 01/25/25 13:44 Laboratory Laboratory Tests 01/25/25 04:39 Test 01/25/25 04:39 Range/Units Serum Glucose 105 74-106 mg/dL Examination: GENERAL:Normal, ABDOMEN:Normal (Nondistended, midline scar well healed, soft, depressible, nontender) Problem List/Assessment/Plan Assessment and Plan Mr. Howard is a 39-year-old male who presented on 01/21 with a partial small bowel obstruction he has a active history of stage III colon cancer and is status post right hemicolectomy, this was done at [facility]. Patient was placed back to low intermittent suction yesterday, there was a lot of output from the NG tube but the patient was also taking liquids, so it is not accurate. Patient feeling great this morning, had 2 bowel movements, wants to eat. We will give a clear liquid diet, clamp the NG tube, advance diet as tolerated, and if he is doing well in the afternoon he could be discharge per surgical standpoint. 1. NG tube clamped 2. Clear liquid diet 3. If patient tolerates clear liquid diet in the morning, keep on advance diet as tolerated, but if diet is advanced past clear liquid diet please remove the NG tube 4. Out of bed and ambulate My Orders My Orders Orders - VIKI BRODERICK MD Procedure Category Date Status Time Clear Liq Diet DIET 01/25/25 Transmitted Breakfast Plan discussed with Plan discussed with: Patient, Spouse Visit Coding Surgery Date of Service if different f: Jan 25, 2025 Billing Provider: VIKI BRODERICK MD Surgery Visit Codes: [id number] INP/OBS CARE(HIGH) VIKI BRODERICK MD Jan 25, 2025 10:24
[2025-01-25] MEDS: POTASSIUM CHL 20MEQ/100ML 100 ML IV SCH (11:15)
[2025-01-25 13:00] VITALS: BP 110/83; PULSE 84; RESP 18; TEMP 98.6; O2SAT 100
[2025-01-25 13:04] LABS: Magnesium 1.9 mg/dL (1.6-2.6)
--- NOTE | 2025-01-25 14:28 | DVHPNRES ---
Progress Note Date Seen: Jan 25, 2025 Resident Creating Document: SEFERINO SHABAZZ RESIDENT Medical Necessity Reason Pt with a Central, PICC or Fol: No Subjective Review of Systems Lee Jose Luis Zak Alfredo 39 years old male with a PMH of colon cancer status post resection and currently receiving chemotherapy presented to the ED with the chief complaints of abdominal pain for the last 3 days. Patient received his most recent chemotherapy treatment last Sunday, he was initially fine but on Sunday he began experiencing increasing abdominal pain associated with the bloating that come and goes every 5-7 minutes. Associated symptoms include nausea and vomiting. He is able to pass the gas on his last bowel movement was yesterday. He denies diarrhea, fever, sick contacts, recent travel and other associated symptoms at this time. Three months back patient presented with same symptoms, diagnosed as partial bowel obstruction and again presented with the same complaints. Urinalysis negative for UTI, UDS negative. CT abdomen and pelvis [id number] and distended stomach as well as jejunum. Findings suggest small bowel obstruction. X-ray KUB- Dilated loops of small bowel are seen measuring up to 6.2 cm. Enteric tube tip projects over the expected region of the stomach. PMH: Colon cancer currently on chemotherapy PSH: Right-sided colon resection Family history: Noncontributory, no history of cancer in family according to the patient Social history: Lives at home. Denies smoking, alcohol and other drug abuse. 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 As per nursing staff almost 2300 mL of nasogastric suction was done. Patient reported feeling better. Had bowel movement. No nausea or vomiting. Patient is seen by surgery, recommendation reviewed and appreciated. NG tube was removed today. Advance diet to full liquid diet. Plan is to discharge patient tomorrow with the liquid diet if tolerating well. Discontinued IV fluid. Objective vital signs Vital Sign Date Time Temp Pulse Resp B/P (MAP) Pulse Ox O2 Delivery O2 Flow Rate FiO2 01/25/25 09:00 98.5 71 17 109/73 (85) 97 98.5 01/25/25 07:35 Room Air* 0 21 Total Intake and Output 01/24/25 01/24/25 01/25/25 15:00 23:00 07:00 Intake Total 150 ml 700 ml 1348 ml Output Total 900 ml 1100 ml 401 ml Balance -750 ml -400 ml 947 ml medications Current Medications Medications Dose Ordered Sig/Stan Route Start Time Stop Time Status Last Admin Dose Admin Acetaminophen/ Hydrocodone Bitart 1 tab Q4HP PRN PO 01/20/25 18:15 01/23/25 03:35 1 TAB Ondansetron HCl 4 mg Q4HP PRN IV 01/20/25 18:15 01/23/25 03:35 4 MG Acetaminophen 650 mg Q6HP PRN PO 01/20/25 18:15 Pantoprazole Sodium 40 mg DAILY IV 01/21/25 10:00 01/25/25 11:05 40 MG Sodium Chloride 1,000 ml @ 120 mls/hr Q8H20M IV 01/21/25 10:45 01/25/25 00:04 120 MLS/HR Ceftriaxone Sodium 50 ml @ 100 mls/hr DAILY@09 IV 01/21/25 11:30 01/25/25 10:59 100 MLS/HR Metronidazole 100 ml @ 100 mls/hr Q8H IV 01/21/25 11:30 01/25/25 13:39 100 MLS/HR Heparin Sodium (Porcine) 5,000 units Q12HR SC 01/21/25 11:30 01/25/25 11:23 5,000 UNITS Amino Acids 0 ml @ 0 mls/hr PER PHARMACY IV 01/24/25 18:00 Amino Acids/ Electrolytes/ Dextrose 1,000 ml @ 41 mls/hr DAILY@2200 IV 01/24/25 22:00 01/25/25 21:59 01/24/25 22:35 41 MLS/HR Diagnostic Test (Pha) 1 strip Q6HR 01/25/25 00:00 01/25/25 12:00 1 STRIP Insulin Human Regular FOLLOW SLIDING SCALE Q6HR SC 01/25/25 00:00 Dextrose 50 ml UD IV 01/24/25 18:15 Examination General examination- awake, alert, oriented HEENT- PEERLA, no acute nasal discharge Cardiovascular- S1-S2 audible, rate and rhythm regular, no murmur Respiratory- CTAB, no wheeze or rhonchi Gastrointestinal-abdominal wall scar present, bowel sound+. Musculoskeletal-no acute joint swelling or tenderness or redness Lower extremity- no leg edema Neurological- cranial nerves intact, no acute dysarthria or dysphagia Psychiatry- denies depression or SI or HI Skin- no acute rash or purpura laboratory and microbiology Laboratory Tests 01/25/25 04:39 Test 01/25/25 04:39 Range/Units Serum Glucose 105 74-106 mg/dL Problem List/Assessment/Plan Problem List/Assessment/Plan Assessment and plan -NG tube was removed today. Advance diet to full liquid diet. Plan is to discharge patient tomorrow with the liquid diet if tolerating well. # acute small-bowel obstruction # intractable abdominal pain and nausea and vomiting likely due to above --full liquid diet -on ceftriaxone and metronidazole IV as prescribed --small-bowel follow-through no acute obstruction -surgery recommendation reviewed and appreciated -NG tube was removed today on 01/25/2025 -plan is to discharge patient tomorrow with full liquid diet if tolerating full liquid diet # history of colon cancer, status post colectomy, on chemotherapy -please follow up with your oncologist as per schedule Goals of care, Code status full code; discussed with >15 minutes PUD prophylaxis: Pantoprazole DVT prophylaxis: Heparin Plan discussed with Dr. Hamilton , nursing staff, Total time spent on patient evaluation, chart review, assessment and plan, discussion discussion >35 minutes Plan discussed with: Patient, Spouse, Other (RN) My Orders My Orders Orders - SEFERINO SHABAZZ RESIDENT Procedure Category Date Status Time Full Liq Diet DIET 01/25/25 Transmitted Lunch Discontinue Ng ORDERS 01/25/25 Transmitted 12:43 Dietary Evaluation Review Comments: 1) Increase TPN rate to meet at least 75% of estimated daily needs 2) Advance to GI soft diet when medically feasible 3) Follow-up with gastroenterology and oncology 4) Continue to monitor I&O, labs, and skin integrity Expected Outcomes/Goals: 1) nutritional support to meet at least 75% of estimated daily needs 2) labs to improve 3) diet to advance 4) f/u in 3-5 days SEFERINO SHABAZZ Jan 25, 2025 14:28
[2025-01-25 17:00] VITALS: BP 106/78; PULSE 73; RESP 17; TEMP 98.9; O2SAT 98
[2025-01-25 21:07] VITALS: BP 108/75; PULSE 70; RESP 16; TEMP 98.7; O2SAT 97
[2025-01-25] MEDS: POTASSIUM PHOSPHATE 22 MEQ in SODIUM CHL 0.9% 100 ML IV ONE (22:42)
[2025-01-26 01:00] VITALS: BP 94/64; PULSE 66; RESP 18; TEMP 98.3; O2SAT 97
[2025-01-26 05:00] VITALS: BP 101/70; PULSE 64; RESP 16; TEMP 97.9; O2SAT 98
[2025-01-26 06:21] LABS: Alanine Aminotransferase 29 U/L (7-40); Albumin 3.6 g/dL (3.2-4.8); Alkaline Phosphatase 86 U/L (46-116); Anion Gap 10 (5-15); Carbon Dioxide 27 mmol/L (20-31); Chloride 100 mmol/L (98-107); Magnesium 1.8 mg/dL (1.6-2.6); Sodium 137 mmol/L (136-145); Total Protein 6.0 g/dL (5.7-8.2); Triglycerides 88 mg/dL (< 150)
[2025-01-26 06:22] LABS: BUN/Creatinine Ratio 9.4 (10.0-20.0); Bilirubin, Total 0.4 mg/dL (0.2-1.0); Blood Urea Nitrogen < 5 mg/dL (9-23); Calcium 8.6 mg/dL (8.7-10.4); Glucose 113 mg/dL (74-106); Potassium 3.2 mmol/L (3.5-5.1)
[2025-01-26 08:00] VITALS: O2SAT 98
[2025-01-26 09:00] VITALS: BP 105/75; PULSE 68; RESP 20; TEMP 98.3; O2SAT 98
[2025-01-26] MEDS: POTASSIUM EFFERVESENT TAB 25 MEQ PO ONE (09:11)
[2025-01-26] MEDS: MAGNESIUM SULFATE 1GM/100ML 100 ML IV ONE (09:12)
[2025-01-26] MEDS ORDERED: POTASSIUM PHOSPHATE 22 MEQ in SODIUM CHL 0.9% 100 ML IV ONE (11:30)
[2025-01-26] MEDS ORDERED: POTASSIUM CHL 20MEQ/100ML 100 ML IV ONE (11:30)
[2025-01-26] MEDS ORDERED: AUG875T PO (12:54)
[2025-01-26] MEDS ORDERED: ERGO1CAP23 PO (12:54)
[2025-01-26 13:00] VITALS: BP 114/83; PULSE 71; RESP 20; TEMP 98.1; O2SAT 99
--- NOTE | 2025-01-26 13:04 | DVHPN2 ---
Progress Note - Surgical Date Seen: Jan 26, 2025 Post op day Post op day: 0 Subjective Patient reports: Feels better (Nondistended tolerating soft bland diet, had 3 bowel movements (2 yesterday and 1 today.) Review of Systems: Deferred Objective Vital signs Vital Sign Date Time Temp Pulse Resp B/P (MAP) Pulse Ox O2 Delivery O2 Flow Rate FiO2 01/26/25 09:00 98.3 68 20 105/75 (85) 98 98.3 01/26/25 08:00 Room Air* 0 21 Total Intake and Output 01/25/25 01/25/25 01/26/25 14:59 22:59 06:59 Intake Total 390 ml 1121 ml 800 ml Balance 390 ml 1121 ml 800 ml Medications Current Medications Medications Dose Ordered Sig/Stan Route Start Time Stop Time Status Last Admin Dose Admin Acetaminophen/ Hydrocodone Bitart 1 tab Q4HP PRN PO 01/20/25 18:15 01/23/25 03:35 1 TAB Ondansetron HCl 4 mg Q4HP PRN IV 01/20/25 18:15 01/23/25 03:35 4 MG Acetaminophen 650 mg Q6HP PRN PO 01/20/25 18:15 Pantoprazole Sodium 40 mg DAILY IV 01/21/25 10:00 01/26/25 09:10 40 MG Ceftriaxone Sodium 50 ml @ 100 mls/hr DAILY@09 IV 01/21/25 11:30 01/26/25 09:11 100 MLS/HR Metronidazole 100 ml @ 100 mls/hr Q8H IV 01/21/25 11:30 01/26/25 12:12 100 MLS/HR Heparin Sodium (Porcine) 5,000 units Q12HR SC 01/21/25 11:30 01/26/25 09:30 5,000 UNITS Diagnostic Test (Pha) 1 strip Q6HR 01/25/25 00:00 01/26/25 12:10 1 STRIP Insulin Human Regular FOLLOW SLIDING SCALE Q6HR SC 01/25/25 00:00 Dextrose 50 ml UD IV 01/24/25 18:15 Laboratory Laboratory Tests 01/26/25 05:21 01/25/25 04:39 Test 01/26/25 05:21 Range/Units Serum Glucose 113 H 74-106 mg/dL Examination: GENERAL:Normal, ABDOMEN:Normal (Nondistended, soft, depressible, nontender midline scar well healed) Problem List/Assessment/Plan Assessment and Plan Mr. Howard is a 39-year-old male who presented on 01/21 with a partial small bowel obstruction he has a active history of stage III colon cancer and is status post right hemicolectomy, this was done at [facility]. Patient doing very well this morning he was started on clear liquid diet yesterday and was advanced to soft diet, he has been tolerating, no nausea/vomiting. He also had 2 bowel movements yesterday and 1 this morning. Patient is feeling great and wants to go home. At this point partial SBO has resolved, he is cleared for discharge per surgery standpoint. 1. Cleared for discharge from surgical standpoint. 2. Patient will benefit from continued uses of stool softeners at home, no laxatives. My Orders My Orders Orders - VIKI BRODERICK MD Procedure Category Date Status Time Soft Diet DIET 01/25/25 Transmitted Dinner Plan discussed with Plan discussed with: Patient, Spouse Visit Coding Surgery Date of Service if different f: Jan 26, 2025 Billing Provider: VIKI BRODERICK MD Surgery Visit Codes: [id number] INP/OBS CARE(HIGH) VIKI BRODERICK MD Jan 26, 2025 13:04
[2025-01-26] MEDS ORDERED: DOCU-94 PO (13:12)
[2025-01-26 14:57] VITALS: BP 105/72; PULSE 68; RESP 16; TEMP 36.7; O2SAT 98
--- NOTE | 2025-01-26 16:49 | DVHDSRES ---
Discharge Summary Date of Admission Resident Creating Document: BIENVENIDO ARGUELLO Jan 20, 2025 at 18:01 Date of Discharge: Jan 26, 2025 Labs/Diagnostic Data: Laboratory Results Test 01/26/25 12:07 01/26/25 05:21 01/25/25 04:39 01/21/25 06:25 POC Glucose 119 mg/dl (70-106) Sodium Level 137 mmol/L (136-145) Potassium Level 3.2 mmol/L (3.5-5.1) Chloride Level 100 mmol/L (98-107) Carbon Dioxide Level 27 mmol/L (20-31) Anion Gap 10 (5-15) Blood Urea Nitrogen < 5 mg/dL (9-23) Creatinine 0.53 mg/dL (0.700-1.30) Glomerular Filtration Rate Calc 132 mL/min (>90) BUN/Creatinine Ratio 9.4 (10.0-20.0) Serum Glucose 113 mg/dL (74-106) Calcium Level 8.6 mg/dL (8.7-10.4) Phosphorus Level 2.6 mg/dL (2.4-5.1) Magnesium Level 1.8 mg/dL (1.6-2.6) Total Bilirubin 0.4 mg/dL (0.2-1.0) Aspartate Amino Transferase (AST) 32 U/L (13-40) Alanine Aminotransferase (ALT) 29 U/L (7-40) Alkaline Phosphatase 86 U/L (46-116) Total Protein 6.0 g/dL (5.7-8.2) Albumin 3.6 g/dL (3.2-4.8) Triglycerides Level 88 mg/dL (< 150) White Blood Count 6.9 10^3/uL (4.4-10.8) Red Blood Count 4.61 10^6/uL (4.5-5.90) Hemoglobin 13.8 g/dL (13.5-17.5) Hematocrit 38.4 % (41.0-53.0) Mean Corpuscular Volume 83.3 fL (80.0-100.0) Mean Corpuscular Hemoglobin 30.0 pg (28.0-32.0) Mean Corpuscular Hemoglobin Concent 36.0 g/dL (32.0-36.0) Red Cell Distribution Width 14.2 % (11.8-14.3) Platelet Count 212 10^3/uL (140-450) Mean Platelet Volume 6.4 fL (6.9-10.8) Neutrophils (%) (Auto) 69.7 % (37.0-80.0) Lymphocytes (%) (Auto) 15.8 % (10.0-50.0) Monocytes (%) (Auto) 14.2 % (0.0-12.0) Eosinophils (%) (Auto) 0.2 % (0.0-7.0) Basophils (%) (Auto) 0.1 % (0.0-2.0) Neutrophils # (Auto) 4.8 10 ^3/uL (1.6-8.6) Lymphocytes # (Auto) 1.1 10 ^3/uL (0.4-5.4) Monocytes # (Auto) 1.0 10 ^3/uL (0-1.3) Eosinophils # (Auto) 0 10 ^3/uL (0-0.8) Basophils # (Auto) 0 10 ^3/uL (0-0.2) Nucleated Red Blood Cells 0.1 % Hemoglobin A1c 5.7 % A1C (<5.7) Vitamin B12 Level 578 pg/mL (211-911) Vitamin D 25-Hydroxy 21.0 ng/mL (30.0-100) Folic Acid 34.44 ng/mL (>5.38) Thyroid Stimulating Hormone (TSH) 1.54 uIU/mL (0.55-4.78) Test 01/20/25 23:50 01/20/25 15:40 01/20/25 15:04 Urine Color Light-orange (Yellow) Urine Clarity Ex.turbid (Clear) Urine pH 7.0 (5.0-9.0) Urine Specific [place] 1.022 (1.001-1.035) Urine Protein Trace (Negative) Urine Ketones 2+ (Negative) Urine Blood Negative /uL (Negative) Urine Nitrite Negative (Negative) Urine Bilirubin Negative (Negative) Urine Urobilinogen 3 mg/dL (Negative) Urine Leukocyte Esterase Negative /uL (Negative) Urine RBC None seen /hpf (0 - 3) Urine Microscopic WBC < 1 /HPF (0-3) Urine Squamous Epithelial Cells None seen /hpf (<5) Urine Amorphous Crystals Mod /hpf (None Seen) Urine Bacteria Few /hpf (None Seen) Urine Mucus Few (None Seen) Urine Glucose Normal mg/dL (Normal) Urine Opiates Screen Neg (NEGATIVE) Urine Fentanyl Screen Neg (NEGATIVE) Urine Barbiturates Screen Neg (NEGATIVE) Urine Phencyclidine Screen Neg (NEGATIVE) Urine Amphetamines Screen Neg (NEGATIVE) Urine Benzodiazepines Screen Neg (NEGATIVE) Urine Cocaine Screen Neg (NEGATIVE) Urine Cannabinoids Screen Neg (NEGATIVE) Lipase 27 U/L (12-53) Prothrombin Time 11.3 sec (9.3-11.8) Prothrombin Time INR 1.07 (0.9-1.15) Activated Partial Thromboplast Time 27.9 SEC (24.5-34.5) Other Laboratory Tests 01/26/25 05:21 01/25/25 04:39 Brief Hx & Hospital Course: Jose Luis Howard 39 years old male with a PMH of colon cancer status post resection and currently receiving chemotherapy presented to the ED with the chief complaints of abdominal pain for the last 3 days. Patient received his most recent chemotherapy treatment last Sunday, he was initially fine but on Sunday he began experiencing increasing abdominal pain associated with the bloating that come and goes every 5-7 minutes. Associated symptoms include nausea and vomiting. He is able to pass the gas on his last bowel movement was yesterday. He denies diarrhea, fever, sick contacts, recent travel and other associated symptoms at this time. Three months back patient presented with same symptoms, diagnosed as partial bowel obstruction and again presented with the same complaints. Urinalysis negative for UTI, UDS negative. CT abdomen and pelvis [id number] and distended stomach as well as jejunum. Findings suggest small bowel obstruction. X-ray KUB- Dilated loops of small bowel are seen measuring up to 6.2 cm. Enteric tube tip projects over the expected region of the stomach. The patient had a similar episode 3 months ago diagnosed as partial bowel obstruction. On admission nasogastric decompression iliac 2300 mL of output, symptomatic improvement. He tolerated a bowel movement and reported no further nausea or vomiting. The patient was treated with IV ceftriaxone and metronidazole. Small-bowel follow-through revealed no obstruction. The NGT was removed on 01/25/2025 and the patient was advanced to a full liquid out. Recommended the patient's will benefit from laxatives on discharge. The patient was hemodynamically stable during discharge, was tolerating soft diet, the treatment and discharge plan was explained to the patient and verbalized understanding. PMH: Colon cancer currently on chemotherapy PSH: Right-sided colon resection Family history: Noncontributory, no history of cancer in family according to the patient Social history: Lives at home. Denies smoking, alcohol and other drug abuse. 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 Musculoskeletal-no acute joint swelling or tenderness or redness Lower extremity- no leg edema Neurological- cranial nerves intact, no acute dysarthria or dysphagia Psychiatry- denies depression or SI or HI Skin- no acute rash or purpura Case discussed with, Dr. Hamilton Operations or Procedures Small-bowel series: No obstruction X-ray KUB abdomen single view 01/21/2025 Adopted dose of small bowel are seen measuring up to 6.2 cm. Enteric tube tip projects over the expected region of the smoke ATIENT: JOSE LUIS HOWARDCCT: [id number] UNIT: [id number] : 1985 LOC: ER ROOM / BED: / AGE / SEX: 39 / M ADM STATUS: REG ER SERVICE [id number] ORDERING PHYSICIAN: NISHI PORTILLO MD PROCEDURE(s): ABPL - CT AB PEL WO CON-NO ORAL OR IV REASON: pain ORDER NUMBER(s): [id number], ACCESSION NUMBER(s): [id number] Exam: CT CT AB PEL WO CON-NO ORAL OR IV History: pain Comparison Study: CT CT AB PEL WO CON-NO ORAL OR IV on DOS: 10/04/24 TECHNIQUE: Multidetector CT of the abdomen was performed from lung bases to pubic symphysis. Imaging was performed without IV contrast. Axial, coronal and sagittal multiplanar reformats were obtained from the axial data set by the technologist. Radiation Dose Information: CT Dose: CTDI volume is 11.55 mGy. Dose-length product is 696.34 mGy*cm FINDINGS: Evaluation of solid organs is limited due to lack of intravenous contrast use. Findings: Lung Bases: No acute or significant lung base finding. Normal heart size. No pleural or pericardial effusion. Liver: The liver is normal in size. No focal lesions. Gallbladder and Biliary Tree: Unremarkable Spleen: Unremarkable Pancreas: The pancreas is grossly normal in appearance. Adrenal Glands: Unremarkable Kidneys: Kidneys are grossly normal without calculi or hydronephrosis. Bladder: Grossly unremarkable for degree of distention. Bowel: Fluid distended stomach and proximal small bowel. Small bowel is distended with fluid findings suggest small bowel obstruction. Consider small- bowel follow-through.. The appendix is not visualized; however, no secondary findings of acute appendicitis identified. Ascites: Absent Lymphadenopathy: No mesenteric, retroperitoneal or periportal lymphadenopathy. Abdominal Wall and Mesentery: Unremarkable. Vasculature: The visualized abdominal aorta is normal in size and caliber. Evaluation of abdominal and pelvic vessels is limited due to lack of intravenous contrast. Pelvic Organs: Unremarkable Musculoskeletal: No aggressive focal bony lesions, acute fractures or dislocation. Soft tissues: Unremarkable IMPRESSION: 1. Fluid-filled and distended stomach as well as jejunum. Findings suggest small bowel obstruction. Consider small-bowel follow-through for further evaluation. Radiation optimization: All CT scans at this facility use at least one of these dose optimization techniques: automated exposure control mA and/or kV adjustment per patient size (includes targeted exams where dose is matched to clinical indication) or iterative reconstruction. ATED BY: REDDY ULRICH Jr., DO DICTATED DATE/TIME: 01/20/25 163 SIGNED BY: REDDY ULRICH Jr., SIGNED DATE/TIME: 01/20/25 163 Condition at Discharge: Stable Final Diagnosis/Problems List # acute small-bowel obstruction # intractable abdominal pain and nausea and vomiting likely due to above # history of colon cancer, status post colectomy, on chemotherapy Discharge Disposition: Home Discharge Instruct/Medications Diet: See Comment Diet comment: Soft diet for initial 4-5 days, then advance diet as tolerated Activity: No Restrictions, As Tolerated Follow Up/Referral: Follow up with PCP and oncologist in 1 week Medications: As per EMR Scheduled Amoxicillin & Pot Clavulanate (Augmentin Tablet), 875 MG PO BID Docusate Sodium (Colace), 100 MG PO BID Ergocalciferol (Vitamin D 06080 Unit), 50,000 UNIT PO QWEEKLY Pantoprazole Sodium Sesquihydr (Pantoprazole Sodium), 40 MG PO DAILY Discharge Statement: "Patient was advised to return to the ER or call 911 if any headaches, dizziness, shortness of breath, chest pain, abdominal pain, bleeding, fevers, or worsening of medical condition. Patient was counseled about treatment plan, medications, possible side effects, patientverbalized understanding. All questions were answered to the best of my ability. This discharge took greater then 30 minutes in planning, reviewing documentation, counseling the patient, and discussing with other team members." ASSESSMENT ASSESSMENT Assessment BIENVENIDO ARGUELLO RESIDENT Jan 26, 2025 16:49
== END 2025-01-26 16:00 | disposition home or self-care (01) | DRG 247 ==
LOC: ER 14:52 → OVERFLOW 18:01 → CENTRAL 01-21 15:44
PROVIDERS: ADMIT Internal Medicine Geriatric Medicine; ATTEND Internal Medicine Geriatric Medicine
PROC: 0D9670Z Drainage of Stomach with Drainage Device, Via Natural or Artificial Opening (ICD-10-PCS; principal; 2025-01-22)
DX: K56.600 Partial intestinal obstruction, unspecified as to cause (principal); Z85.038 Personal history of other malignant neoplasm of large intestine; Z90.49 Acquired absence of other specified parts of digestive tract
CPT/HCPCS: 36415; 71045; 74018; 74176; 74250; 80048; 80053; 80307; 81001; 82306; 82607; 82746; 82962; 83036; 83690; 83735; 84100; 84132; 84443; 84478; 85025; 85610; 85730; 96374; G0378; J1885; J2405; J2470; J3480; J3490